=== PATIENT | female | born 1940 | race Caucasian/White ===

== ENCOUNTER → 2016-10-26 | Outpatient (CLI) | payer OTHER ==
[~2016-10-26] MED LIST: ACET-1138 PO; ASPEC325 PO; ASPEC81 PO; BSP/10 PO; CHOL100010 PO; CLTP PO; FRRG PO; LEVO75TA PO; MISCTAB88 PO; MULT-506 PO; SALI0.658 NAE; ULT50X PO; ZLF/50 PO
[2016-10-26 18:00] LABS: ALT/SGPT 18 U/L (12-78); AST/SGOT 17 U/L (15-37); BLOOD UREA NITROGEN 12 mg/dl (7-18); BUN/CREATININE RATIO 13.8 (10-20); CALCIUM 8.6 mg/dl (8.5-10.1); CARBON DIOXIDE 30 mmol/L (21-32); CHLORIDE 109 mmol/L (98-107); CREATININE 0.86 mg/dl (0.60-1.20); GLUCOSE 81 mg/dl (70-99); POTASSIUM 4.2 mmol/L (3.5-5.1); SODIUM 144 mmol/L (136-145)
[2016-10-26 18:10] LABS: ALB/GLOB RATIO 1.1 (0.9-2); ALKALINE PHOSPHATASE 75 U/L (45-117)
== END | disposition home or self-care (01) ==
LOC: C.LABBFT 10:35
PROVIDERS: ATTEND Nurse Practitioner
DX: E55.9 Vitamin D deficiency, unspecified (principal); E03.9 Hypothyroidism, unspecified; E78.5 Hyperlipidemia, unspecified

== ENCOUNTER → 2017-03-17 | Outpatient (CLI) | payer OTHER ==
--- NOTE | 2017-03-18 09:38 | MAMMOGRAPHY REPORT ---
BILATERAL DIGITAL SCREENING MAMMOGRAM WITH CAD: 03/17/2017 CLINICAL HISTORY: Routine screening. Patient has no complaints. TECHNIQUE: Current study was also evaluated with a Computer Aided Detection (CAD) system. Bilateral CC and MLO views were obtained. COMPARISON: Comparison is made to exams dated: 03/15/2016 mammogram, 02/27/2015 mammogram, 02/22/2013 mammogram, 02/25/2014 mammogram, 02/21/2012 mammogram, and 02/18/2011 mammogram - [facility]. BREAST COMPOSITION: The tissue of both breasts is almost entirely fatty. FINDINGS: No suspicious masses, calcifications, or areas of architectural distortion are noted in ei ther breast. There has been no significant interval change compared to prior exams. IMPRESSION: ACR BI-RADS CATEGORY 1: NEGATIVE There is no mammographic evidence of malignancy. A 1 year screening mammogram is recommended. The pa tient will receive written notification of the results. Approximately 10% of breast cancers are not detected with mammography. A negative mammographic report should not delay biopsy if a clinically suggestive mass is present. Juanis Graham M.D. ah/:03/17/2017 12:15:49 Fiber Artist: Leti DOMINGUEZ(R)(M), [facility] letter sent: Normal 1/2 BI-RADS Code: ACR BI-RADS Category 1: Negative
== END | disposition home or self-care (01) ==
LOC: C.MAMM 11:27
PROVIDERS: ATTEND Nurse Practitioner
DX: Z12.31 Encounter for screening mammogram for malignant neoplasm of breast (principal)

== ENCOUNTER → 2017-05-25 | Outpatient (CLI) | payer OTHER ==
[2017-05-25 17:47] LABS: ALBUMIN 3.4 gm/dl (3.4-5.0); ALT/SGPT 20 U/L (12-78); AST/SGOT 19 U/L (15-37); BLOOD UREA NITROGEN 11 mg/dl (7-18); CALCIUM 8.8 mg/dl (8.5-10.1); CARBON DIOXIDE 28 mmol/L (21-32); CHOLESTEROL 204 mg/dl (0-200); GLUCOSE 71 mg/dl (70-99); POTASSIUM 4.2 mmol/L (3.5-5.1); SODIUM 138 mmol/L (136-145)
[2017-05-25 17:49] LABS: ALKALINE PHOSPHATASE 78 U/L (45-117); LDL CHOLESTEROL CALCULATED 107 mg/dl
== END | disposition home or self-care (01) ==
LOC: C.LABBFT 11:33
PROVIDERS: ATTEND Nurse Practitioner
DX: E78.5 Hyperlipidemia, unspecified (principal); E53.8 Deficiency of other specified B group vitamins

== ENCOUNTER 2020-04-23 09:51 | Observation (INO) ==
[2020-04-23] MEDS ORDERED: ONDANSETRON INJ 2 MG/ML 2 ML VIAL IV STA (10:14)
[2020-04-23 10:23] LABS: Basophils # (auto) 0.01 K/uL (0-0.2); Basophils % (auto) 0.2 %; Eosinophils # (auto) 0.07 K/uL (0-0.5); Eosinophils % (auto) 1.3 %; Hematocrit (blood only) 44.5 % (37-47); Immature Granulocytes # (auto) 0.02 K/uL (0.00-0.02); Immature Granulocytes % (auto) 0.4 %; Lymphocytes # (auto) 2.38 K/uL (1.2-3.4); Lymphocytes % (auto) 44.4 %; Mean Corpuscular Hemoglobin 29.4 pg (25-34); Mean Corpuscular Hgb Conc 33.7 g/dL (32-36); Mean Corpuscular Volume 87.1 fL (80-100); Mean Platelet Volume 9.8 fL (7.4-10.4); Monocytes % (auto) 7.5 %; Neutrophils # (auto) 2.48 K/uL (1.4-6.5); Neutrophils % (auto) 46.2 %; Platelet Count 226 K/uL (130-400); RDW Coefficient of Variation 13.1 % (11.5-14.5); Red Blood Count 5.11 M/uL (4.2-5.4); White Blood Count 5.36 K/uL (4.8-10.8)
--- NOTE | 2020-04-23 10:28 | Emergency Department Note ---
Impression & Plan Pulmonary embolism, Vertigo ED Provider Note NAME: KEMAR CISNEROS AGE: 79 SEX: F : 1940 ARRIVES VIA: Walk-In INFORMANT: Patient, ED PROVIDER(S): Marcellus Vallejo DO CHIEF COMPLAINT: Vertigo HPI: The patient is a 79-year-old female who presented to the emergency department for an evaluation of dizziness and vertigo. The patient was seen in our facility recently for similar complaints. She has significant difficulty ambulating because of "room spinning". The patient is had intermittent episodes of dizziness. They appear to be very severe at times. When she first came to our facility she had to come by ambulance because symptoms were so severe. She states she is also noticed some constipation. She denies having any chest pain. She denies having a headache but she does complain of "neck fullness". She denies having any lower extremity swelling or cough. She is had no fever or exposure to COVID-19 as far she knows. The patient had a telehealth visit with her primary care physician but at that time the symptoms were improved somewhat. The patient is very concerned that she is having a stroke. ROS: See above HPI for pertinent positives & negatives. A total of 10 systems reviewed and were otherwise negative. PAST MEDICAL HISTORY: See Below PAST SURGICAL HISTORY: See Below FAMILY HISTORY: See Below SOCIAL HISTORY: See Below HOME MEDICATIONS: See Below ALLERGIES: See Below VITALS: See Below PHYSICAL EXAMINATION: GENERAL: The patient is awake and alert. She appears somewhat anxious appearing but overall comfortable. EYES: The conjunctivae are clear. The pupils are round and reactive. There was no nystagmus elicited. EARS, NOSE, MOUTH AND THROAT: The nose is without any evidence of any deformity. Mucous membranes are moist. Tongue is midline. NECK: The neck is nontender and supple. RESPIRATORY: Normal respiratory effort is noted there is no evidence of wheezing rhonchi or rales CARDIOVASCULAR: Regular rate and rhythm noted there no murmurs rubs or gallops normal S1 normal S2. GASTROINTESTINAL: The abdomen is soft. Abdomen is nontender. MUSCULOSKELETAL/EXTREMITIES: There is no evidence of gross deformity full range of motion is noted in the hips and shoulders. SKIN: There is no obvious evidence of any rash. There are no petechiae, pallor or cyanosis noted. NEUROLOGIC: Patient is awake alert and oriented x3 strength is symmetric patellar reflexes are 2+ bilaterally MEDICAL DECISION MAKING: The patient is a 79-year-old female who presented to the emergency department for an evaluation of dizziness. The patient describes generalized weakness and dizziness. She describes her dizziness as vertigo. She was seen in our facility recently with similar complaints. The patient initially felt she was h aving neurologic symptoms. She did not have any focal neurologic deficit but because of her concerns further laboratory and radiographic studies were obtained to ensure this was not a central nervous system cause for her vertigo. Coincidentally it was noted that she had pulmonary embolism in the right upper lobe. This was found on CT angiography of the neck. She was treated with Lovenox in the emergency department. She was also treated with Zofran. I discussed the patient's laboratory and radiographic studies with her. I also discussed her case with the on-call [facility] group. They have agreed to evaluate the patient in the emergency department for further management and disposition. The patient does not appear to have unstable vital signs. She did receive IV contrast for the [employer] imaging. I would recommend that the patient consider having angiography of the chest to evaluate the clot burden although I do not think it will be very great given the patient's vital signs. She did have Dopplers of the lower extremities which did not appear to have any signs of DVT. Triage Nursing notes reviewed. Prior medical records reviewed Vital Signs: reviewed and remarkable for elevated blood pressure. Differential diagnosis: Benign positional vertigo, dehydration, hypovolemia, anemia, tumor, infection, hypoglycemia, electrolyte abnormalities, cardiac sources, intracerebral event, toxicologic, neurologic, as well as other pathologies. ER treatment provided: See below Diagnostics interpreted by me: ECG: EKG was obtained in the emergency department. My interpretation is sinus bradycardia 51 bpm. There is no ectopy. There is no acute ST segment abnormalities noted. This was compared to a tracing from April 17, 2020. No significant changes were noted. Cardiac Monitoring: An order was placed for continuous cardiac monitoring. The monitor shows a rate of 55 bpm with sinus bradycardia rhythm. Laboratory studies: As stated above and show below. Imaging studies: See below Consultation(s): 1325: I discussed this case with Myrtle who is on-call for the [facility] group. They will evaluate the patient in the emergency department. ED COURSE: Procedures: none PDMP:reviewed and no issues Critical Care: I have personally spent greater than 45 minutes of critical care time in the direct management of this patient. This includes bedside care, interpretation of diagnostic studies, and testing, discussion with consultants, patient, and family members, and other required patient management activities. This 45 minutes is in excess of all separately billable procedures. Past Med/Surg History Medical History Anxiety Artificial menopause state Depression Fibroma of lip GERD (gastroesophageal reflux disease) Hypothyroidism Insomnia Osteoarthritis Papilloma of oral cavity Urinary leakage Surgical History History of adenoidectomy History of bilateral tubal ligation History of cataract surgery RT/LEFT History of cholecystectomy History of colonoscopy History of esophagogastroduodenoscopy (EGD) History of tonsillectomy History of tooth extraction History of total abdominal hysterectomy and bilateral salpingo-oophorectomy History of total knee replacement RT Family History Sister Family history of diabetes mellitus Hypertension Allergies Other No family history of adverse response to anesthesia No family history of bleeding disorder Social History Smoking Status: Never smoker Second Hand Exposure: Yes (IN THE PAST); Hx Alcohol Use: No Hx Substance Use: No Preferred Language: Irish Communication Ability: Effective Swat Team Member Required: No Beliefs That Will Affect Care: None Current Living Situation: Spouse current occupational status: retired Feels Safe at Home: Yes Assistive Devices: Glasses and Hearing Aid - Bilateral Allergies Allergies Allergy/AdvReac Type Severity Reaction Status Date / Time levofloxacin Allergy Intermediate QUINOLONES-JOINT Verified 04/23/20 13:16 PAIN EDEMA lumiracoxib Allergy Intermediate TRILISATE-TINNITUS,CONFUSION,RAPID Verified 04/23/20 13:16 HEART RATE zolpidem Allergy Intermediate MUSCLE PAIN Verified 04/23/20 13:16 choline salicylate Allergy Mild tinnitus/co Verified 04/23/20 13:16 nfusion/tac hycardia ciprofloxacin Allergy Mild RASH Verified 04/23/20 13:16 clindamycin Allergy Mild RASH Verified 04/23/20 13:16 homatropine Allergy Mild RASH Verified 04/23/20 13:16 magnesium salicylate Allergy Mild tinnitus/co Verified 04/23/20 13:16 nfusion/tac hycardia Penicillins Allergy Mild RASH Verified 04/23/20 13:16 phenobarbital Allergy Mild RASH Verified 04/23/20 13:16 Quinolones Allergy Mild LEVAQUIN-JOINT Verified 04/23/20 13:16 PAIN,EDEMA terfenadine Allergy Mild HEADACHES Verified 04/23/20 13:16 Trilisate Allergy Mild tinnitus/co Verified 12/26/15 10:23 nfusion/tac hycardia atropine Allergy Unknown UNKNOWN Verified 04/23/20 13:16 hyoscyamine Allergy Unknown UNKNOWN Verified 04/23/20 13:16 metronidazole Allergy Unknown UNKNOWN Verified 04/23/20 13:16 nabumetone Allergy Unknown UNKNOWN Verified 04/23/20 13:16 pantoprazole Allergy Unknown UNKNOWN Verified 04/23/20 13:16 scopolamine Allergy Unknown UNKNOWN Verified 04/23/20 13:16 tetracycline Allergy Unknown UNKNOWN Verified 04/23/20 13:16 astemizole AdvReac Intermediate HISMANAL-HE Verified 04/23/20 13:16 ADACHES capsaicin AdvReac Mild HEADACHE Verified 04/23/20 13:16 Cephalosporins AdvReac Mild CEFTIN-GI Verified 04/23/20 13:16 upset diclofenac AdvReac Mild HEADACHE Verified 04/23/20 13:16 Diclopak AdvReac Mild HEADACHE Verified 12/26/15 14:50 etodolac AdvReac Mild LODINE-HEAD Verified 04/23/20 13:16 ACHE fentanyl AdvReac Mild DIZZINESS Verified 04/23/20 13:16 oxaprozin AdvReac Mild DAYPRO-NAUSEA Verified 04/23/20 13:16 AND VOMITING oxycodone AdvReac Mild HALLUCINATI Verified 04/23/20 13:16 ONS,DISORIE NTATION pseudoephedrine AdvReac Mild GUAIMAX Verified 04/23/20 13:16 D-GI UPSET INSOMNIA DISORIENTATION RAPID HEART RATE Dehydrocholic Acid Allergy Mild UNKNOWN Uncoded 04/23/20 13:16 Home Meds Home Medications Medication Instructions Recorded Confirmed Move Free Joint Health 1 tab PO HS 05/02/18 04/23/20 melatonin 10 mg PO HS PRN 05/02/18 04/23/20 cholecalciferol (vitamin D3) 2,000 unit PO HS 07/13/18 04/23/20 [Vitamin D3] aspirin 81 mg PO QAM 08/02/18 04/23/20 cjfuplgrjmyy-efmu-fboam acid 1 tab PO HS 01/18/19 04/23/20 [Centrum] cyanocobalamin (vitamin B-12) 5,000 mcg PO WEEKLY cap 04/12/19 04/23/20 5,000 mcg capsule calcium carbonate-mag hydroxid 2 tab PO DIRECTED PRN 04/17/20 04/23/20 [Rolaids] Previous Rx's Medication Instructions Recorded loratadine 10 mg tablet 10 mg PO DAILY #30 tab 02/27/19 buspirone 10 mg tablet 10 mg PO TID #270 tab 01/25/20 levothyroxine 75 mcg tablet 75 mcg PO DAILY #90 tab 02/18/20 sertraline 50 mg tablet 50 mg PO DAILY #90 tab 02/18/20 meclizine 25 mg tablet 25 mg PO TID PRN #30 tab 04/18/20 ondansetron HCl 4 mg tablet 4 mg PO Q8H PRN #30 tab 04/18/20 Results & Data (ED) Vital Signs Vital Signs - 24 hr 04/23/20 09:56 04/23/20 10:08 04/23/20 10:14 Temperature 36.6 C Temperature Source Temporal Artery Scan Pulse Rate 59 L 53 L 53 L Pulse Rate [Apical] Pulse Rate from SpO2 Sensor 53 L 52 L Respiratory Rate 16 17 17 Respiratory Effort / Characteristics Non-Labored Spontaneous Respiratory Depth Normal Respiratory Pattern Regular Blood Pressure 134/69 147/84 H Blood Pressure [Left Arm] Blood Pressure Mean 90 97 Blood Pressure Mean [Left Arm] Blood Pressure Position Sitting Pulse Oximetry 96 98 98 Oxygen Delivery Method Room Air Sepsis Recent Fever Within 48 Hours No Sepsis New/Unexplained Change in Mental Status N/A Sepsis Action Taken by Nursing No Action Required 04/23/20 10:20 04/23/20 10:24 04/23/20 10:30 Temperature Temperature Source Pulse Rate 49 L 48 L Pulse Rate [Apical] 50 L Pulse Rate from SpO2 Sensor 49 L 47 L Respiratory Rate 23 20 18 Respiratory Effort / Characteristics Respiratory Depth Respiratory Pattern Blood Pressure 144/66 H Blood Pressure [Left Arm] 147/84 H Blood Pressure Mean 99 Blood Pressure Mean [Left Arm] 105 Blood Pressure Position Pulse Oximetry 98 98 97 Oxygen Delivery Method Room Air Sepsis Recent Fever Within 48 Hours Sepsis New/Unexplained Change in Mental Status Sepsis Action Taken by Nursing 04/23/20 10:40 04/23/20 10:50 04/23/20 11:00 Temperature Temperature Source Pulse Rate 51 L 53 L 47 L Pulse Rate [Apical] Pulse Rate from SpO2 Sensor 50 L 52 L 47 L Respiratory Rate 13 14 17 Respiratory Effort / Characteristics Respiratory Depth Respiratory Pattern Blood Pressure 150/71 H Blood Pressure [Left Arm] Blood Pressure Mean 90 Blood Pressure Mean [Left Arm] Blood Pressure Position Pulse Oximetry 94 97 Oxygen Delivery Method Sepsis Recent Fever Within 48 Hours Sepsis New/Unexplained Change in Mental Status Sepsis Action Taken by Nursing 04/23/20 11:21 04/23/20 11:30 04/23/20 11:31 Temperature Temperature Source Pulse Rate 63 59 L 59 L Pulse Rate [Apical] Pulse Rate from SpO2 Sensor 59 L 59 L Respiratory Rate 21 17 18 Respiratory Effort / Characteristics Respiratory Depth Respiratory Pattern Blood Pressure 174/71 H Blood Pressure [Left Arm] Blood Pressure Mean 91 Blood Pressure Mean [Left Arm] Blood Pressure Position Pulse Oximetry 97 94 Oxygen Delivery Method Sepsis Recent Fever Within 48 Hours Sepsis New/Unexplained Change in Mental Status Sepsis Action Taken by Nursing 04/23/20 11:40 04/23/20 11:50 04/23/20 12:00 Temperature Temperature Source Pulse Rate 58 L 58 L 52 L Pulse Rate [Apical] Pulse Rate from SpO2 Sensor 58 L Respiratory Rate 16 13 16 Respiratory Effort / Characteristics Respiratory Depth Respiratory Pattern Blood Pressure 150/69 H Blood Pressure [Left Arm] Blood Pressure Mean 102 Blood Pressure Mean [Left Arm] Blood Pressure Position Pulse Oximetry 97 Oxygen Delivery Method Sepsis Recent Fever Within 48 Hours Sepsis New/Unexplained Change in Mental Status Sepsis Action Taken by Nursing 04/23/20 12:10 04/23/20 12:20 04/23/20 12:30 Temperature Temperature Source Pulse Rate 55 L 58 L 54 L Pulse Rate [Apical] Pulse Rate from SpO2 Sensor 56 L 58 L 54 L Respiratory Rate 13 16 14 Respiratory Effort / Characteristics Respiratory Depth Respiratory Pattern Blood Pressure 167/68 H Blood Pressure [Left Arm] Blood Pressure Mean 89 Blood Pressure Mean [Left Arm] Blood Pressure Position Pulse Oximetry 96 97 100 Oxygen Delivery Method Sepsis Recent Fever Within 48 Hours Sepsis New/Unexplained Change in Mental Status Sepsis Action Taken by Nursing 04/23/20 13:10 04/23/20 13:11 Temperature Temperature Source Pulse Rate 58 L 51 L Pulse Rate [Apical] Pulse Rate from SpO2 Sensor 50 L Respiratory Rate 21 16 Respiratory Effort / Characteristics Respiratory Depth Respiratory Pattern Blood Pressure 170/72 H Blood Pressure [Left Arm] Blood Pressure Mean 103 Blood Pressure Mean [Left Arm] Blood Pressure Position Pulse Oximetry 98 Oxygen Delivery Method Sepsis Recent Fever Within 48 Hours Sepsis New/Unexplained Change in Mental Status Sepsis Action Taken by Prison Medications Current Medication List: was personally reviewed by me Laboratory Data Attestation: I reviewed the patient's lab results. Result diagrams: 04/23/20 10:19 04/23/20 10:19 Lab Results 04/23/20 04/23/20 04/23/20 Range/Units 10: 10: 10:19 WBC 5.36 (4.8-10.8) K/uL RBC 5.11 (4.2-5.4) M/uL Hgb 15.0 (12.0-16.0) g/dL Hct 44.5 (37-47) % MCV 87.1 (80-100) fL MCH 29.4 (25-34) pg MCHC 33.7 (32-36) g/dL RDW Std Deviation 42.0 (36.4-46.3) fL RDW Coeff of Adelaida 13.1 (11.5-14.5) % Plt Count 226 (130-400) K/uL MPV 9.8 (7.4-10.4) fL Immature Gran % (Auto) 0.4 % Neut % (Auto) 46.2 % Lymph % (Auto) 44.4 % Vance % (Auto) 7.5 % Eos % (Auto) 1.3 % Baso % (Auto) 0.2 % Neut # (Auto) 2.48 (1.4-6.5) K/uL Lymph # (Auto) 2.38 (1.2-3.4) K/uL Vance # (Auto) 0.40 (0.11-0.59) K/uL Eos # (Auto) 0.07 (0-0.5) K/uL Baso # (Auto) 0.01 (0-0.2) K/uL Immature Gran # (Auto) 0.02 (0.00-0.02) K/uL PT 10.9 (9.0-12.0) Seconds INR 1.0 (0.9-1.1) APTT 25.2 (21.0-31.0) Seconds PTT Ratio 0.9 Sodium 139 (136-145) mmol/L Potassium 4.0 (3.5-5.1) mmol/L Chloride 103 (98-107) mmol/L Carbon Dioxide 28 (21-32) mmol/L Anion Gap 8.0 (3-11) BUN 16 (7-18) mg/dl Creatinine 1.13 (0.6-1.2) mg/dl Est Cr Clr Drug Dosing 40.7 ml/min Est GFR ( Amer) 54.3 Est GFR (Non-Af Amer) 46.8 BUN/Creatinine Ratio 13.9 (10-20) Glucose 102 H (70-99) mg/dl Calcium 9.5 (8.5-10.1) mg/dl Magnesium 2.4 (1.8-2.4) mg/dl Total Bilirubin 0.7 (0.2-1) mg/dl AST 20 (15-37) U/L ALT 19 (12-78) U/L Alkaline Phosphatase 72 (45-117) U/L Troponin I < 0.015 (0-0.045) ng/ml Total Protein 7.0 (6.4-8.2) gm/dl Albumin 3.4 (3.4-5.0) gm/dl Globulin 3.6 (2.5-4.0) gm/dl Albumin/Globulin Ratio 0.9 (0.9-2) Urine Color Urine Appearance (Clear) Urine pH (4.5-7.5) Ur Specific [place] (1.000-1.030) Urine Protein (Negative) Urine Glucose (UA) (Negative) Urine Ketones (Negative) Urine Blood (Negative) Urine Nitrite (Negative) Urine Bilirubin (Negative) Urine Urobilinogen (Negative) Ur Leukocyte Esterase (Negative) Urine WBC (Auto) (0-5) /hpf Urine RBC (Auto) (0-4) /hpf U Hyaline Cast (Auto) (0-5) /lpf U Epithel Cells (Auto) (0-5) /lpf Urine Bacteria (Auto) (Negative) SARS-CoV-2 Ag (Rapid) (Negative) 04/23/20 04/23/20 Range/Units 11:45 12:28 WBC (4.8-10.8) K/uL RBC (4.2-5.4) M/uL Hgb (12.0-16.0) g/dL Hct (37-47) % MCV (80-100) fL MCH (25-34) pg MCHC (32-36) g/dL RDW Std Deviation (36.4-46.3) fL RDW Coeff of Adelaida (11.5-14.5) % Plt Count (130-400) K/uL MPV (7.4-10.4) fL Immature Gran % (Auto) % Neut % (Auto) % Lymph % (Auto) % Vance % (Auto) % Eos % (Auto) % Baso % (Auto) % Neut # (Auto) (1.4-6.5) K/uL Lymph # (Auto) (1.2-3.4) K/uL Vance # (Auto) (0.11-0.59) K/uL Eos # (Auto) (0-0.5) K/uL Baso # (Auto) (0-0.2) K/uL Immature Gran # (Auto) (0.00-0.02) K/uL PT (9.0-12.0) Seconds INR (0.9-1.1) APTT (21.0-31.0) Seconds PTT Ratio Sodium (136-145) mmol/L Potassium (3.5-5.1) mmol/L Chloride (98-107) mmol/L Carbon Dioxide (21-32) mmol/L Anion Gap (3-11) BUN (7-18) mg/dl Creatinine (0.6-1.2) mg/dl Est Cr Clr Drug Dosing ml/min Est GFR ( Amer) Est GFR (Non-Af Amer) BUN/Creatinine Ratio (10-20) Glucose (70-99) mg/dl Calcium (8.5-10.1) mg/dl Magnesium (1.8-2.4) mg/dl Total Bilirubin (0.2-1) mg/dl AST (15-37) U/L ALT (12-78) U/L Alkaline Phosphatase (45-117) U/L Troponin I (0-0.045) ng/ml Total Protein (6.4-8.2) gm/dl Albumin (3.4-5.0) gm/dl Globulin (2.5-4.0) gm/dl Albumin/Globulin Ratio (0.9-2) Urine Color Yellow Urine Appearance Clear (Clear) Urine pH 8.5 H (4.5-7.5) Ur Specific [place] 1.019 (1.000-1.030) Urine Protein Negative (Negative) Urine Glucose (UA) Negative (Negative) Urine Ketones Negative (Negative) Urine Blood Negative (Negative) Urine Nitrite Negative (Negative) Urine Bilirubin Negative (Negative) Urine Urobilinogen Negative (Negative) Ur Leukocyte Esterase 1+ H (Negative) Urine WBC (Auto) 1-5 (0-5) /hpf Urine RBC (Auto) 0-4 (0-4) /hpf U Hyaline Cast (Auto) 0 (0-5) /lpf U Epithel Cells (Auto) 10-20 H (0-5) /lpf Urine Bacteria (Auto) Negative (Negative) SARS-CoV-2 Ag (Rapid) Negative (Negative) Administered Medications Discontinued Medications Enoxaparin Sodium (Enoxaparin 80 Mg/0.8 Ml Syr) 80 mg SQ NOW ONE Stop: 04/23/20 12:01 Last Admin: 04/23/20 13:06 Dose: 80 mg Documented by: [id number] Ioversol (Optiray 320 125ml) 119 ml IV ONCE ONE Stop: 04/23/20 11:21 Last Admin: 04/23/20 11:20 Dose: 119 ml Documented by: [id number] Ondansetron HCl (Ondansetron Inj 2 Mg/Ml 2 Ml Vial) 4 mg IV NOW STA Stop: 04/23/20 10:15 Last Admin: 04/23/20 10:27 Dose: 4 mg Documented by: [id number] Imaging Data Radiologist's Impression: Patient: KEMAR CISNEROS Admit Date: 04/23/20 MR#: [id number] Address1: [address] [place] [address] Acct ID:[id number] Address2: Date: 1940 [facility] Zip: [place] [address] Age: 79 Location: ED Sex: F Room/Bed: Att Phy: Diagnosis: VERTIGO Jennifer Phy: Ena Vogt CRNP Service Date: 04/23/20 Fam Phy: Interpreting Phy: Abhinav Morfin MD Admit Phy: Ordering Phy: Marcellus Vallejo DO cc: ~ BILATERAL LOWER EXTREMITY VENOUS DOPPLER HISTORY: Pulmonary embolus. Assess for DVT. COMPARISON STUDY: None. FINDINGS: There is normal compressibility, flow, and augmentation within the bilateral lower extremity deep venous systems. IMPRESSION: No DVT within the right or left lower extremity. ACT 112: Negative or not required by law. Electronically signed by: Abhinav Morfin M.D. 04/23/2020 12:57 PM Dictated: 04/23/20 1257 Transcribed: 04/23/20 1257 Patient: KEMAR CISNEROS Admit Date: 04/23/20 MR#: [id number] Address1: [address] [place] [address] Acct ID:[id number] Address2: Date: 1940 [facility] Zip: [place] [address] Age: 79 Location: ED Sex: F Room/Bed: Att Phy: Diagnosis: VERTIGO Jennifer Phy: Ena Vogt CRNP Service Date: 04/23/20 [facility] Phy: Interpreting Phy: Andrae Schofield MD Admit Phy: Ordering Phy: Marcellus Vallejo DO cc: ~ UNENHANCED CT OF THE BRAIN; CT ANGIOGRAM OF THE BRAIN; CT ANGIOGRAM OF THE NECK CLINICAL HISTORY: Strokelike symptoms. Vertigo. COMPARISON STUDY: CT of the brain dated 05/02/2018 and 01/01/2014. TECHNIQUE: Unenhanced axial CT scan of the brain is performed. Subsequently, following the IV administration of 119 of Optiray 320, CT angiogram of the head and neck was performed from the aortic arch to the vertex. Images are reviewed in the axial, sagittal, and coronal planes. 3-D MIPS images are created and assessed. IV contrast was administered without complication. All measurements were calculated based on NASCET criteria. A dose lowering technique was uti lized adhering to the principles of ALARA. CT DOSE: 1096.70 mGy.cm FINDINGS: Brain parenchyma: There is minimal microangiopathic change. There is no hemorrhage, mass effect, or evidence of acute territorial ischemia by CT criteria. There is no evidence of enhancing mass lesion on the angiogram phase images. The ventricles, sulci, and cisterns are normal in configuration. Garcia- white matter differentiation is preserved. No extra-axial fluid collection is seen. Mineralization is again seen in the left basal ganglia. Thoracic aorta: There is mild atherosclerotic calcification of the thoracic a елена. Visualized portions of the thoracic aorta are normal in caliber. The aortic arch demonstrates bovine variant anatomy. Right carotid arterial system: The right common carotid artery is widely patent, as are the right internal and external carotid arteries. Left carotid arterial system: The left common carotid artery is widely patent, as are the left internal and external carotid arteries. Vertebral arteries: The vertebral arteries are patent bilaterally noting left- sided dominance. Subclavian arteries: Widely patent bilaterally. Intracranial vasculature: The [place] of [place] is developmentally complete. The internal carotid arteries are patent at the skull base, as are the anterior and middle cerebral arteries bilaterally. The vertebrobasilar system and posterior cerebral arteries are widely patent. The left vertebral artery is dominant. There is no aneurysm, high-grade stenosis, or focal vessel cut off seen throughout the intracranial circulation. There is a large draining vessel in the region of the left basal ganglia calcifications seen on image #83, likely resenting an AVM. Jugular veins: Patent bilaterally. Dural sinuses: Patent. Upper chest: Partially visualized upper lobe lung parenchyma appears clear. There are pulmonary emboli within branches of the right upper lobe pulmonary artery seen on image #12. Soft tissues: The visualized pharyngeal soft tissues are normal in appearance noting angiographic phase technique. The oropharyngeal airway appears widely patent. The thyroid gland is atrophic. The salivary glands are normal in appearance. No cervical lymphadenopathy is seen. Skeletal structures: The skeletal structures are osteopenic. The calvarium a ppears intact. The cervical spine is maintained noting mild multilevel spondylosis. No lytic or blastic lesion is seen. Orbits: The bony orbits are intact. Orbital contents are normal as visualized n oting bilateral ocular lens implants. Sinuses and mastoids: The paranasal sinuses are clear. There is a right mastoid effusion. The left mastoid air cells are well pneumatized. IMPRESSION: 1. Pulmonary emboli are seen within branches of the right upper lobe pulmonary artery. 2. There is no hemorrhage, mass effect, or evidence of acute territorial ischemia by CT criteria. 3. Unremarkable CT angiogram of the neck. 4. Asymmetric calcifications are again seen in the left basal ganglia. There are abnormal vessels in this region, likely representing an AVM. A developmental venous anomaly could have this appearance but is considered less likely. This finding is of doubtful acute significance and has been present on studies dating back to at least 2013. 5. Otherwise unremarkable CT angiogram of the brain. ACT 112: Negative or not required by law. Electronically signed by: Andrae Schofield M.D. 04/23/2020 11:46 AM Dictated: 04/23/204 Transcribed: 04/23/201123 Patient: KEMAR CISNEROS Admit Date: 04/23/20 MR#: [id number] Address1: [address] [place] [address] Acct ID:[id number] Address2: Date: 1940 [facility] Zip: [place] [address] Age: 79 Location: ED Sex: F Room/Bed: Att Phy: Diagnosis: VERTIGO Jennifer Phy: Ena Vogt CRNP Service Date: 04/23/20 Fam Phy: Interpreting Phy: Lukas Solis MD Admit Phy: Ordering Phy: Marcellus Vallejo DO cc: ~ KUB CLINICAL HISTORY: Vomiting. COMPARISON STUDY: Abdominal series April 17, 2020. FINDINGS: Incidental note is made of cholecystectomy clips. The bowel gas pattern is normal. A mild to moderate amount stool within colon and rectum is noted. This is within normal limits. IMPRESSION: No evidence for a bowel obstruction. ACT 112: Negative or not required by law. Electronically signed by: Lukas Solis M.D. 04/23/2020 11:00 AM Dictated: 04/23/20 1059 Transcribed: 04/23/20 105 Patient: KEMAR CISNEROS Admit Date: 04/23/20 MR#: [id number] Address1: [address] [place] [address] Acct ID:[id number] Address2: Date: 1940 [facility] Zip: [place] [address] Age: 79 Location: ED Sex: F Room/Bed: Att Phy: Diagnosis: VERTIGO Jennifer Phy: Ena Vogt CRNP Service Date: 04/23/20 Fam Phy: Interpreting Phy: Andrae Schofield MD Admit Phy: Ordering Phy: Marcellus Vallejo DO cc: ~ UNENHANCED CT OF THE BRAIN; CT ANGIOGRAM OF THE BRAIN; CT ANGIOGRAM OF THE NECK CLINICAL HISTORY: Strokelike symptoms. Vertigo. COMPARISON STUDY: CT of the brain dated 05/02/2018 and 01/01/2014. TECHNIQUE: Unenhanced axial CT scan of the brain is performed. Subsequently, following the IV administration of 119 of Optiray 320, CT angiogram of the head and neck was performed from the aortic arch to the vertex. Images are reviewed in the axial, sagittal, and coronal planes. 3-D MIPS images are created and assessed. IV contrast was administered without complication. All measurements were calculated based on NASCET criteria. A dose lowering technique was utilized adhering to the principles of ALARA. CT DOSE: 1096.70 mGy.cm FINDINGS: Brain parenchyma: There is minimal microangiopathic change. There is no hemorrhage, mass effect, or evidence of acute territorial ischemia by CT criteria. There is no evidence of enhancing mass lesion on the angiogram phase images. The ventricles, sulci, and cisterns are normal in configuration. Garcia- white matter differentiation is preserved. No extra-axial fluid collection is seen. Mineralization is again seen in the left basal ganglia. Thoracic aorta: There is mild atherosclerotic calcification of the thoracic aorta. Visualized portions of the thoracic aorta are normal in caliber. The aortic arch demonstrates bovine variant anatomy. Right carotid arterial system: The right common carotid artery is widely patent, as are the right internal and external carotid arteries. Left carotid arterial system: The left common carotid artery is widely patent, as are the left internal and external carotid arteries. Vertebral arteries: The vertebral arteries are patent bilaterally noting left- sided dominance. Subclavian arteries: Widely patent bilaterally. Intracranial vasculature: The [place] of [place] is developmentally complete. The internal carotid arteries are patent at the skull base, as are the anterior and middle cerebral arteries bilaterally. The vertebrobasilar system and posterior cerebral arteries are widely patent. The left vertebral artery is dominant. There is no aneurysm, high-grade stenosis, or focal vessel cut off seen throughout the intracranial circulation. There is a large draining vessel in the region of the left basal ganglia calcifications seen on image #83, likely resenting an AVM. Jugular veins: Patent bilaterally. Dural sinuses: Patent. Upper chest: Partially visualized upper lobe lung parenchyma appears clear. There are pulmonary emboli within branches of the right upper lobe pulmonary artery seen on image #12. Soft tissues: The visualized pharyngeal soft tissues are normal in appearance noting angiographic phase technique. The oropharyngeal airway appears widely patent. The thyroid gland is atrophic. The salivary glands are normal in appearance. No cervical lymphadenopathy is seen. Skeletal structures: The skeletal structures are osteopenic. The calvarium appears intact. The cervical spine is maintained noting mild multilevel spondylosis. No lytic or blastic lesion is seen. Orbits: The bony orbits are intact. Orbital contents are normal as visualized noting bilateral ocular lens implants. Sinuses and mastoids: The paranasal sinuses are clear. There is a right mastoid effusion. The left mastoid air cells are well pneumatized. IMPRESSION: 1. Pulmonary emboli are seen within branches of the right upper lobe pulmonary artery. 2. There is no hemorrhage, mass effect, or evidence of acute territorial ischemia by CT criteria. 3. Unremarkable CT angiogram of the neck. 4. Asymmetric calcifications are again seen in the left basal ganglia. There are abnormal vessels in this region, likely representing an AVM. A developmental venous anomaly could have this appearance but is considered less likely. This finding is of doubtful acute significance and has been present on studies dating back to at least 2013. 5. Otherwise unremarkable CT angiogram of the brain. ACT 112: Negative or not required by law. Electronically signed by: Andrae Schofield M.D. 04/23/2020 11:46 AM Dictated: 04/23/201123 Transcribed: 04/23/201123 Patient: KEMAR CISNEROS Admit Date: 04/23/20 MR#: [id number] Address1: [address] [place] [address] Acct ID:[id number] Address2: Date: 1940 [facility] Zip: [place] [address] Age: 79 Location: ED Sex: F Room/Bed: Att Phy: Diagnosis: VERTIGO Jennifer Phy: Ena oVgt CRNP Service Date: 04/23/20 [facility] Phy: Interpreting Phy: Andrae Schofield MD Admit Phy: Ordering Phy: Marcellus Vallejo DO cc: ~ UNENHANCED CT OF THE BRAIN; CT ANGIOGRAM OF THE BRAIN; CT ANGIOGRAM OF THE NECK CLINICAL HISTORY: Strokelike symptoms. Vertigo. COMPARISON STUDY: CT of the brain dated 05/02/2018 and 01/01/2014. TECHNIQUE: Unenhanced axial CT scan of the brain is performed. Subsequently, following the IV administration of 119 of Optiray 320, CT angiogram of the head and neck was performed from the aortic arch to the vertex. Images are reviewed in the axial, sagittal, and coronal planes. 3-D MIPS images are created and assessed. IV contrast was administered without complication. All measurements were calculated based on NASCET criteria. A dose lowering technique was utilized adhering to the principles of ALARA. CT DOSE: 1096.70 mGy.cm FINDINGS: Brain parenchyma: There is minimal microangiopathic change. There is no hemorrhage, mass effect, or evidence of acute territorial ischemia by CT criteria. There is no evidence of enhancing mass lesion on the angiogram phase images. The ventricles, sulci, and cisterns are normal in configuration. Garcia- white matter differentiation is preserved. No extra-axial fluid collection is seen. Mineralization is again seen in the left basal ganglia. Thoracic aorta: There is mild atherosclerotic calcification of the thoracic aorta. Visualized portions of the thoracic aorta are normal in caliber. The aortic arch demonstrates bovine variant anatomy. Right carotid arterial system: The right common carotid artery is widely patent, as are the right internal and external carotid arteries. Left carotid arterial system: The left common carotid artery is widely patent, a s are the left internal and external carotid arteries. Vertebral arteries: The vertebral arteries are patent bilaterally noting left- sided dominance. Subclavian arteries: Widely patent bilaterally. Intracranial vasculature: The [place] of [place] is developmentally complete. The internal carotid arteries are patent at the skull base, as are the anterior and middle cerebral arteries bilaterally. The vertebrobasilar system and posterior cerebral arteries are widely patent. The left vertebral artery is dominant. There is no aneurysm, high-grade stenosis, or focal vessel cut off seen throughout the intracranial circulation. There is a large draining vessel in the region of the left basal ganglia calcifications seen on image #83, likely resenting an AVM. Jugular veins: Patent bilaterally. Dural sinuses: Patent. Upper chest: Partially visualized upper lobe lung parenchyma appears clear. Th ere are pulmonary emboli within branches of the right upper lobe pulmonary artery seen on image #12. Soft tissues: The visualized pharyngeal soft tissues are normal in appearance noting angiographic phase technique. The oropharyngeal airway appears widely patent. The thyroid gland is atrophic. The salivary glands are normal in appearance. No cervical lymphadenopathy is seen. Skeletal structures: The skeletal structures are osteopenic. The calvarium appears intact. The cervical spine is maintained noting mild multilevel spondylosis. No lytic or blastic lesion is seen. Orbits: The bony orbits are intact. Orbital contents are normal as visualized noting bilateral ocular lens implants. Sinuses and mastoids: The paranasal sinuses are clear. There is a right mastoid effusion. The left mastoid air cells are well pneumatized. IMPRESSION: 1. Pulmonary emboli are seen within branches of the right upper lobe pulmonary artery. 2. There is no hemorrhage, mass effect, or evidence of acute territorial ischemia by CT criteria. 3. Unremarkable CT angiogram of the neck. 4. Asymmetric calcifications are again seen in the left basal ganglia. There are abnormal vessels in this region, likely representing an AVM. A developmental venous anomaly could have this appearance but is considered less likely. This finding is of doubtful acute significance and has been present on studies dating back to at least 2013. 5. Otherwise unremarkable CT angiogram of the brain. ACT 112: Negative or not required by law. Electronically signed by: Andrae Schofield M.D. 04/23/2020 11:46 AM Dictated: 04/23/201123 Transcribed: 04/23/201123 Patient: KEMAR CISNEROS Admit Date: 04/23/20 MR#: [id number] Address1: [address] [place] [address] Acct ID:[id number] Address2: Date: 1940 [facility] Zip: [place] [address] Age: 79 Location: ED Sex: F Room/Bed: Att Phy: Diagnosis: VERTIGO Jennifer Phy: Ena Vogt CRNP Service Date: 04/23/20 [facility] Phy: Interpreting Phy: Lukas Solis MD Admit Phy: Ordering Phy: Marcellus Vallejo DO cc: ~ XR chest 1V portable CLINICAL HISTORY: Stroke Like Symptoms COMPARISON STUDY: Chest radiograph April 17, 2020. FINDINGS: Lung volumes are normal. Lungs are clear. There is no pneumothorax or pleural effusion. Cardiac size is stable. Mediastinal contours are normal. There is no evidence for pulmonary edema. IMPRESSION: No acute cardiopulmonary findings. ACT 112: Negative or not required by law. Electronically signed by: Lukas Solis M.D. 04/23/2020 11:01 AM Dictated: 04/23/20 1100 Transcribed: 04/23/20 1100 Blood Pressure Blood Pressure Findings: Elevated blood pressure Blood Pressure Disposition: further management by hospitalist Discharge Plan Visit Data Chief Complaint: Vertigo Stated Complaint: VERTIGO ED Provider: Marcellus Vallejo Discharge Problem: Pulmonary embolism, Vertigo Patient Disposition: Being Evaluated by Hospitalist Condition: Good Forms Stand Alone Forms: [email or web address] Prescriptions Prescriptions: No Action cyanocobalamin (vitamin B-12) 5,000 mcg capsule 5,000 mcg PO WEEKLY RF: 0 buspirone 10 mg tablet 10 mg PO TID Qty: 270 RF: 1 levothyroxine 75 mcg tablet 75 mcg PO DAILY Qty: 90 RF: 3 sertraline [Zoloft] 50 mg tablet 50 mg PO DAILY Qty: 90 RF: 3 loratadine [Claritin] 10 mg tablet 10 mg PO DAILY Qty: 30 RF: 6 meclizine 25 mg tablet 25 mg PO TID PRN (Reason: dizziness) Qty: 30 RF: 0 ondansetron HCl 4 mg tablet 4 mg PO Q8H PRN (Reason: nausea and vomiting) Qty: 30 RF: 0 melatonin 10 mg Tablet 10 mg PO HS PRN (Reason: Insomnia) RF: 0 [facility] 750 mg-100 mg- 1.65 mg-108 mg Tablet 1 tab PO HS RF: 0 cholecalciferol (vitamin D3) [Vitamin D3] 2,000 unit Capsule 2,000 unit PO HS RF: 0 aspirin 81 mg Tablet,Delayed Release (Dr/Ec) 81 mg PO QAM RF: 0 Centrum 18-400 mg-mcg Tablet 1 tab PO HS RF: 0 Rolaids 550-110 mg Tablet,Chewable 2 tab PO DIRECTED PRN (Reason: UPSET STOMACH) RF: 0 Referrals Referrals: Ena Vogt CRNP [Primary Care Provider] - Discharge Problem: Pulmonary embolism Qualifiers: Pulmonary embolism type: unspecified Chronicity: acute Acute cor pulmonale presence: unspecified Qualified Code(s): I26.99 - Other pulmonary embolism without acute cor pulmonale
[2020-04-23 10:36] LABS: Partial Thromboplastin Ratio 0.9; Partial Thromboplastin Time 25.2 Seconds (21.0-31.0); Prothrombin Time 10.9 Seconds (9.0-12.0)
--- NOTE | 2020-04-23 11:01 | XRay Report ---
KUB CLINICAL HISTORY: Vomiting. COMPARISON STUDY: Abdominal series April 17, 2020. FINDINGS: Incidental note is made of cholecystectomy clips. The bowel gas pattern is normal. A mild t o moderate amount stool within colon and rectum is noted. This is within normal limits. IMPRESSION: No evidence for a bowel obstruction. ACT 112: Negative or not required by law. Electronically signed by: Lukas Solis M.D. 04/23/2020 11:00 AM
[2020-04-23 11:02] LABS: Alanine Aminotransferase 19 U/L (12-78); Albumin Globulin Ratio 0.9 (0.9-2); Albumin Level 3.4 gm/dl (3.4-5.0); Alkaline Phosphatase 72 U/L (45-117); Aspartate Aminotransferase 20 U/L (15-37); BUN Creatinine Ratio 13.9 (10-20); Bilirubin,Total 0.7 mg/dl (0.2-1); Blood Urea Nitrogen 16 mg/dl (7-18); Calcium 9.5 mg/dl (8.5-10.1); Carbon Dioxide 28 mmol/L (21-32); Chloride 103 mmol/L (98-107); Creatinine Clr Calc Pharmacy 40.7 ml/min; Est GFR (African American) 54.3; Est GFR (Non-African American) 46.8; Globulin 3.6 gm/dl (2.5-4.0); Glucose 102 mg/dl (70-99); Magnesium 2.4 mg/dl (1.8-2.4); Sodium 139 mmol/L (136-145); Troponin I < 0.015 ng/ml (0-0.045)
--- NOTE | 2020-04-23 11:02 | XRay Report ---
XR chest 1V portable CLINICAL HISTORY: Stroke Like Symptoms COMPARISON STUDY: Chest radiograph April 17, 2020. FINDINGS: Lung volumes are normal. Lungs are clear. There is no pneumothorax or pleural effusion. Car diac size is stable. Mediastinal contours are normal. There is no evidence for pulmonary edema. IMPRESSION: No acute cardiopulmonary findings. ACT 112: Negative or not required by law. Electronically signed by: Lukas Solis M.D. 04/23/2020 11:01 AM
[2020-04-23] MEDS ORDERED: OPTIRAY 320 125ml IV ONE (11:20)
--- NOTE | 2020-04-23 11:47 | CT Scan Report ---
UNENHANCED CT OF THE BRAIN; CT ANGIOGRAM OF THE BRAIN; CT ANGIOGRAM OF THE NECK CLINICAL HISTORY: Strokelike symptoms. Vertigo. COMPARISON STUDY: CT of the brain dated 05/02/2018 and 01/01/2014. TECHNIQUE: Unenhanced axial CT scan of the brain is performed. Subsequently, following the IV adminis tration of 119 of Optiray 320, CT angiogram of the head and neck was performed from the aortic arch t o the vertex. Images are reviewed in the axial, sagittal, and coronal planes. 3-D MIPS images are cre ated and assessed. IV contrast was administered without complication. All measurements were calculate d based on NASCET criteria. A dose lowering technique was utilized adhering to the principles of ALA RA. CT DOSE: 1096.70 mGy.cm FINDINGS: Brain parenchyma: There is minimal microangiopathic change. There is no hemorrhage, mass effect, or e vidence of acute territorial ischemia by CT criteria. There is no evidence of enhancing mass lesion o n the angiogram phase images. The ventricles, sulci, and cisterns are normal in configuration. Garcia-w uzma matter differentiation is preserved. No extra-axial fluid collection is seen. Mineralization is again seen in the left basal ganglia. Thoracic aorta: There is mild atherosclerotic calcification of the thoracic aorta. Visualized portion s of the thoracic aorta are normal in caliber. The aortic arch demonstrates bovine variant anatomy. Right carotid arterial system: The right common carotid artery is widely patent, as are the right int ernal and external carotid arteries. Left carotid arterial system: The left common carotid artery is widely patent, as are the left internal control specialist al and external carotid arteries. Vertebral arteries: The vertebral arteries are patent bilaterally noting left-sided dominance. Subclavian arteries: Widely patent bilaterally. Intracranial vasculature: The [place] of [place] is developmentally complete. The internal carotid frankie bebeto are patent at the skull base, as are the anterior and middle cerebral arteries bilaterally. The vertebrobasilar system and posterior cerebral arteries are widely patent. The left vertebral artery i s dominant. There is no aneurysm, high-grade stenosis, or focal vessel cut off seen throughout the in tracranial circulation. There is a large draining vessel in the region of the left basal ganglia calc ifications seen on image #83, likely resenting an AVM. Jugular veins: Patent bilaterally. Dural sinuses: Patent. Upper chest: Partially visualized upper lobe lung parenchyma appears clear. There are pulmonary embol i within branches of the right upper lobe pulmonary artery seen on image #12. Soft tissues: The visualized pharyngeal soft tissues are normal in appearance noting angiographic pha se technique. The oropharyngeal airway appears widely patent. The thyroid gland is atrophic. The sali vary glands are normal in appearance. No cervical lymphadenopathy is seen. Skeletal structures: The skeletal structures are osteopenic. The calvarium appears intact. The cervic al spine is maintained noting mild multilevel spondylosis. No lytic or blastic lesion is seen. Orbits: The bony orbits are intact. Orbital contents are normal as visualized noting bilateral ocular lens implants. Sinuses and mastoids: The paranasal sinuses are clear. There is a right mastoid effusion. The left ma stoid air cells are well pneumatized. IMPRESSION: 1. Pulmonary emboli are seen within branches of the right upper lobe pulmonary artery. 2. There is no hemorrhage, mass effect, or evidence of acute territorial ischemia by CT criteria. 3. Unremarkable CT angiogram of the neck. 4. Asymmetric calcifications are again seen in the left basal ganglia. There are abnormal vessels in this region, likely representing an AVM. A developmental venous anomaly could have this appearance bu t is considered less likely. This finding is of doubtful acute significance and has been present on s tudies dating back to at least 2013. 5. Otherwise unremarkable CT angiogram of the brain. ACT 112: Negative or not required by law. Electronically signed by: Andrae Schofield M.D. 04/23/2020 11:46 AM
[2020-04-23] MEDS ORDERED: ENOXAPARIN 80 MG/0.8 ML SYR SQ ONE (12:00)
[2020-04-23 12:14] LABS: Appearance Urine Clear (Clear); Bacteria Urine Automated Negative (Negative); Bilirubin Urine Negative (Negative); Blood Urine Negative (Negative); Cast Urine Automated 0 /lpf (0-5); Color Urine Yellow; Glucose Urine UA Negative (Negative); Ketones Urine Negative (Negative); Leukocyte Esterase Urine 1+ (Negative); Nitrite Urine Negative (Negative); Protein Urine Negative (Negative); RBC Urine Automated 0-4 /hpf (0-4); Specific Gravity Urine 1.019 (1.000-1.030); Urobilinogen Urine Negative (Negative); pH Urine 8.5 (4.5-7.5)
--- NOTE | 2020-04-23 12:59 | Ultrasound Report ---
BILATERAL LOWER EXTREMITY VENOUS DOPPLER HISTORY: Pulmonary embolus. Assess for DVT. COMPARISON STUDY: None. FINDINGS: There is normal compressibility, flow, and augmentation within the bilateral lower extremit y deep venous systems. IMPRESSION: No DVT within the right or left lower extremity. ACT 112: Negative or not required by law. Electronically signed by: Abhinav Morfin M.D. 04/23/2020 12:57 PM
--- NOTE | 2020-04-23 13:30 | History & Physical Report ---
Date of Service April 23, 2020 Assessment & Plan (1) Pulmonary embolism: -MedSurg with telemetry -Start on Lovenox 80 mg subcu q12h -Likely can transition to a NOAC tomorrow -CTA of chest in am to determine clot burden -Venous dopplers legs bilaterally are negative for DVT - pt reports being more sedentary in the past week due to worsening weakness from dizziness/vertigo (2) Vertigo: - CT head showing possible AVM from scans, wonder if pt had TIA a week ago, with word finding difficulty, nausea, vomiting, weakness and unsteady gait - these symptoms although primarily resolved, are present. gait was not assessed but pt reports using a walker through her house in the past week due to imbalance. - Neuro consulted - Contin as 81 mg - Lovenox as above - PT/OT consults (3) Nausea & vomiting: - Hx of such, improved currently - Cont zofran prn (4) Dyslipidemia: - Hx of such, not on statin therapy (5) Depression: - Cont sertraline (6) Anxiety: - Hs of such, will continue buspar 10 mg TID, sertraline 50 mg daily (7) Hypothyroidism: - levothyroxine 75 mcg daily DVT- teds, scds, lovenox CODE: Full code Dispo: From home, likely to remain in the hospital x 1-2 days History of Present Illness Primary Care Provider: IMELDA Garcia This is a 79-year-old female with PMHx of anxiety, depression, pulmonary lung nodules, HLD, GERD, and history of vertigo-like symptoms which have been ongoing for about 1 week. She presented to the ER on 04/18/2020 with complaints of lightheadedness, dizziness, difficulty word finding, weakness, dysfunction with ambulation and needing a walker where she typically does not require one, and shad a negative neurological exam but did not have imaging studies for stroke work-up completed at that point. She was diagnosed with having vertigo and was sent home with Zofran and meclizine. Reports feeling better in the last week with these 2 medications but that she has still had some episodes of feeling lightheaded dizzy. Today on work-up it was found that the patient had subsequent right upper lobe PE on head/neck CTA. She denies any respiratory- like complaints, denies shortness of breath, no dyspnea on exertion, no cough, fever or chills. She lives at home with her . Patient denies any COVID- 19 positive contacts, travel. She is very anxious at bedside and asked if she will have a second Covid swab before she goes home. Patient is concerned and is asking for anxiolytic medication which she takes routinely at home. The only medication she took today was levothyroxine 75 mcg early this morning. Allergies Allergy/AdvReac Type Severity Reaction Status Date / Time levofloxacin Allergy Intermediate QUINOLONES-JOINT Verified 04/23/20 13:16 PAIN EDEMA lumiracoxib Allergy Intermediate TRILISATE-TINNITUS,CONFUSION,RAPID Verified 04/23/20 13:16 HEART RATE zolpidem Allergy Intermediate MUSCLE PAIN Verified 04/23/20 13:16 choline salicylate Allergy Mild tinnitus/co Verified 04/23/20 13:16 nfusion/tac hycardia ciprofloxacin Allergy Mild RASH Verified 04/23/20 13:16 clindamycin Allergy Mild RASH Verified 04/23/20 13:16 homatropine Allergy Mild RASH Verified 04/23/20 13:16 magnesium salicylate Allergy Mild tinnitus/co Verified 04/23/20 13:16 nfusion/tac hycardia Penicillins Allergy Mild RASH Verified 04/23/20 13:16 phenobarbital Allergy Mild RASH Verified 04/23/20 13:16 Quinolones Allergy Mild LEVAQUIN-JOINT Verified 04/23/20 13:16 PAIN,EDEMA terfenadine Allergy Mild HEADACHES Verified 04/23/20 13:16 Trilisate Allergy Mild tinnitus/co Verified 12/26/15 10:23 nfusion/tac hycardia atropine Allergy Unknown UNKNOWN Verified 04/23/20 13:16 hyoscyamine Allergy Unknown UNKNOWN Verified 04/23/20 13:16 metronidazole Allergy Unknown UNKNOWN Verified 04/23/20 13:16 nabumetone Allergy Unknown UNKNOWN Verified 04/23/20 13:16 pantoprazole Allergy Unknown UNKNOWN Verified 04/23/20 13:16 scopolamine Allergy Unknown UNKNOWN Verified 04/23/20 13:16 tetracycline Allergy Unknown UNKNOWN Verified 04/23/20 13:16 astemizole AdvReac Intermediate HISMANAL-HE Verified 04/23/20 13:16 ADACHES capsaicin AdvReac Mild HEADACHE Verified 04/23/20 13:16 Cephalosporins AdvReac Mild CEFTIN-GI Verified 04/23/20 13:16 upset diclofenac AdvReac Mild HEADACHE Verified 04/23/20 13:16 Diclopak AdvReac Mild HEADACHE Verified 12/26/15 14:50 etodolac AdvReac Mild LODINE-HEAD Verified 04/23/20 13:16 ACHE fentanyl AdvReac Mild DIZZINESS Verified 04/23/20 13:16 oxaprozin AdvReac Mild DAYPRO-NAUSEA Verified 04/23/20 13:16 AND VOMITING oxycodone AdvReac Mild HALLUCINATI Verified 04/23/20 13:16 ONS,DISORIE NTATION pseudoephedrine AdvReac Mild GUAIMAX Verified 04/23/20 13:16 D-GI UPSET INSOMNIA DISORIENTATION RAPID HEART RATE Dehydrocholic Acid Allergy Mild UNKNOWN Uncoded 04/23/20 13:16 Home Medications Medication Instructions Recorded Confirmed Type Move Free Joint Health 1 tab PO HS 05/02/18 04/23/20 History melatonin 10 mg PO HS PRN 05/02/18 04/23/20 History cholecalciferol (vitamin D3) 2,000 unit PO HS 07/13/18 04/23/20 History [Vitamin D3] aspirin 81 mg PO QAM 08/02/18 04/23/20 History tlpwdffgzzkd-ffvr-adyld acid 1 tab PO HS 01/18/19 04/23/20 History [Centrum] loratadine 10 mg tablet 10 mg PO DAILY #30 tab 02/27/19 04/23/20 Rx cyanocobalamin (vitamin B-12) 5,000 mcg PO WEEKLY cap 04/12/19 04/23/20 History 5,000 mcg capsule buspirone 10 mg tablet 10 mg PO TID #270 tab 01/25/20 04/23/20 Rx levothyroxine 75 mcg tablet 75 mcg PO DAILY #90 tab 02/18/20 04/23/20 Rx sertraline 50 mg tablet 50 mg PO DAILY #90 tab 02/18/20 04/23/20 Rx calcium carbonate-mag hydroxid 2 tab PO DIRECTED PRN 04/17/20 04/23/20 History [Rolaids] meclizine 25 mg tablet 25 mg PO TID PRN #30 tab 04/18/20 04/23/20 Rx ondansetron HCl 4 mg tablet 4 mg PO Q8H PRN #30 tab 04/18/20 04/23/20 Rx Past Med/Surg History Medical History Anxiety Artificial menopause state Depression Fibroma of lip GERD (gastroesophageal reflux disease) Hypothyroidism Insomnia Osteoarthritis Papilloma of oral cavity Urinary leakage Surgical History History of adenoidectomy History of bilateral tubal ligation History of cataract surgery RT/LEFT History of cholecystectomy History of colonoscopy History of esophagogastroduodenoscopy (EGD) History of tonsillectomy History of tooth extraction History of total abdominal hysterectomy and bilateral salpingo-oophorectomy History of total knee replacement RT Family History Sister Family history of diabetes mellitus Hypertension Allergies Other No family history of adverse response to anesthesia No family history of bleeding disorder Social History Smoking Status: Never smoker Second Hand Exposure: Yes (IN THE PAST); Hx Alcohol Use: No Hx Substance Use: No Preferred Language: Yakut Communication Ability: Effective Desulphurizer Operator Required: No Beliefs That Will Affect Care: None Current Living Situation: Spouse current occupational status: retired Feels Safe at Home: Yes Assistive Devices: Glasses and Hearing Aid - Bilateral Review of Systems Review of Systems: Constitutional: No fever, sweats or chills, + lightheadedne ss, dizziness occasionally Eyes: No diplopia, no worsening or blurred vision ENT: normal hearing, no trouble swallowing Respiratory: No cough, sputum, dyspnea at rest or on exertion Cardiovascular: No chest pain, tightness or palpitations Abdomen: No pain, nausea, vomiting, diarrhea or constipation Musculoskeletal: No joint pain, calf pain, swelling Neurologic: No weakness, numbness/tingling, + 1 week of balance problems, requiring walker Psychiatric: + anxiety and depression Skin: No rash or itch Physical Exam Physical Exam: General: awake, alert, no apparent distress, + obese, anxious Head: Normocephalic, atraumatic ENT: PERRL, EOMI, no pharyngeal exudate, +mucous membranes slightly dry Chest: Clear to auscultation, on room air with o2 sats at 97%, no adventitious breath sounds Cardiac: Regular rate and rhythm, no murmur, no JVD, normal peripheral pulses, good capillary refill Abdominal: NABS x 4 quadrants, soft, nondistended, nontender to palpation, no rebound or guarding Extremities: Normal inspection, no peripheral edema or erythema, calfs nontender to palpation Psych: Anxious mood and affect Neuro: AAO x 3, strength intact bilaterally and rated 4/5, no motor deficits, speech is clear, no peripheral sensory deficits Results & Data Results & Data ([facility]) Vital Signs (Past 12 Hours) Vital Signs Temp Pulse Pulse Resp BP BP Pulse Ox 04/23/20 13:11 51 L 16 170/72 H 98 04/23/20 13:10 58 L 21 04/23/20 12:30 54 L 14 167/68 H 100 04/23/20 12:20 58 L 16 97 04/23/20 12:10 55 L 13 96 04/23/20 12:00 52 L 16 150/69 H 04/23/20 11:50 58 L 13 04/23/20 11:40 58 L 16 97 04/23/20 11:31 59 L 18 174/71 H 94 04/23/20 11:30 59 L 17 97 04/23/20 11:21 63 21 04/23/20 11:00 47 L 17 150/71 H 97 04/23/20 10:50 53 L 14 04/23/20 10:40 51 L 13 94 04/23/20 10:30 48 L 18 144/66 H 97 04/23/20 10:24 50 L 20 147/84 H 98 04/23/20 10:20 49 L 23 98 04/23/20 10:14 53 L 17 98 04/23/20 10:08 53 L 17 147/84 H 98 04/23/20 09:56 36.6 C 59 L 16 134/69 96 Diagnostic Findings UNENHANCED CT OF THE BRAIN; CT ANGIOGRAM OF THE BRAIN; CT ANGIOGRAM OF THE NECK CLINICAL HISTORY: Strokelike symptoms. Vertigo. COMPARISON STUDY: CT of the brain dated 05/02/2018 and 01/01/2014. TECHNIQUE: Unenhanced axial CT scan of the brain is performed. Subsequently, following the IV administration of 119 of Optiray 320, CT angiogram of the head and neck was performed from the aortic arch to the vertex. Images are reviewed in the axial, sagittal, and coronal planes. 3-D MIPS images are created and assessed. IV contrast was administered without complication. All measurements were calculated based on NASCET criteria. A dose lowering technique was utilized adhering to the principles of ALARA. CT DOSE: 1096.70 mGy.cm FINDINGS: Brain parenchyma: There is minimal microangiopathic change. There is no hemorrhage, mass effect, or evidence of acute territorial ischemia by CT criteria. There is no evidence of enhancing mass lesion on the angiogram phase images. The ventricles, sulci, and cisterns are normal in configuration. Garcia- white matter differentiation is preserved. No extra-axial fluid collection is seen. Mineralization is again seen in the left basal ganglia. Thoracic aorta: There is mild atherosclerotic calcification of the thoracic aorta. Visualized portions of the thoracic aorta are normal in caliber. The a ortic arch demonstrates bovine variant anatomy. Right carotid arterial system: The right common carotid artery is widely patent, as are the right internal and external carotid arteries. Left carotid arterial system: The left common carotid artery is widely patent, as are the left internal and external carotid arteries. Vertebral arteries: The vertebral arteries are patent bilaterally noting left- sided dominance. Subclavian arteries: Widely patent bilaterally. Intracranial vasculature: The [place] of [place] is developmentally complete. The internal carotid arteries are patent at the skull base, as are the anterior and middle cerebral arteries bilaterally. The vertebrobasilar system and posterior cerebral arteries are widely patent. The left vertebral artery is dominant. There is no aneurysm, high-grade stenosis, or focal vessel cut off seen throughout the intracranial circulation. There is a large draining vessel in the region of the left basal ganglia calcifications seen on image #83, likely resenting an AVM. Jugular veins: Patent bilaterally. Dural sinuses: Patent. Upper chest: Partially visualized upper lobe lung parenchyma appears clear. There are pulmonary emboli within branches of the right upper lobe pulmonary artery seen on image #12. Soft tissues: The visualized pharyngeal soft tissues are normal in appearance noting angiographic phase technique. The oropharyngeal airway appears widely patent. The thyroid gland is atrophic. The salivary glands are normal in appearance. No cervical lymphadenopathy is seen. Skeletal structures: The skeletal structures are osteopenic. The calvarium appears intact. The cervical spine is maintained noting mild multilevel spondylosis. No lytic or blastic lesion is seen. Orbits: The bony orbits are intact. Orbital contents are normal as visualized noting bilateral ocular lens implants. Sinuses and mastoids: The paranasal sinuses are clear. There is a right mastoid effusion. The left mastoid air cells are well pneumatized. IMPRESSION: 1. Pulmonary emboli are seen within branches of the right upper lobe pulmonary artery. 2. There is no hemorrhage, mass effect, or evidence of acute territorial ischemia by CT criteria. 3. Unremarkable CT angiogram of the neck. 4. Asymmetric calcifications are again seen in the left basal ganglia. There are abnormal vessels in this region, likely representing an AVM. A developmental venous anomaly could have this appearance but is considered less likely. This finding is of doubtful acute significance and has been present on studies dating back to at least 2013. 5. Otherwise unremarkable CT angiogram of the brain. BILATERAL LOWER EXTREMITY VENOUS DOPPLER HISTORY: Pulmonary embolus. Assess for DVT. COMPARISON STUDY: None. FINDINGS: There is normal compressibility, flow, and augmentation within the bilateral lower extremity deep venous systems. IMPRESSION: No DVT within the right or left lower extremity. KUB CLINICAL HISTORY: Vomiting. COMPARISON STUDY: Abdominal series April 17, 2020. FINDINGS: Incidental note is made of cholecystectomy clips. The bowel gas pattern is normal. A mild to moderate amount stool within colon and rectum is noted. This is within normal limits. IMPRESSION: No evidence for a bowel obstruction. XR chest 1V portable CLINICAL HISTORY: Stroke Like Symptoms COMPARISON STUDY: Chest radiograph April 17, 2020. FINDINGS: Lung volumes are normal. Lungs are clear. There is no pneumothorax or pleural effusion. Cardiac size is stable. Mediastinal contours are normal. There is no evidence for pulmonary edema. IMPRESSION: No acute cardiopulmonary findings. ECG Additional Comments: 23-APR-2020 10:07:17 [facility] [place]-EDSTAT ROUTINE RETRIEVAL Sinus bradycardia Otherwise normal ECG When compared with ECG of 17-APR-2020 01:09, Nonspecific T wave abnormality now evident in Lateral leads 25mm/s 10mm/mV 150Hz 9.0.9 12SL 241 ULISSES: 10 Unconfirmed Vent. rate 51 BPM KS interval 166 ms QRS duration 70 ms QT/QTc 446/411 ms Code Status & VTE Plan Code Status Full code-discussed with the patient Supervising Physician Co-Signing Physician Notes Patient was seen and examined independently I discussed the case with Myrtle Farah PAC I reviewed pertinent past medical social family history and also the plan of car e and agree with the plan of care. Patient had vertigo over the last few days she is even was in the ER for that one time. She returns with vertigo and upon imaging evaluation of her head and neck with angiography pulmonary believes was discovered in upper branches of her pulmonary arteries. She has some old changes over brain which may be arteriovenous malformations but these are stable since 2013. Patient is admitted for treatment of her pulmonary embolism with Lovenox therapy. Patient has negative DVT study of her lower legs. This appears to be an unprovoked DVT which will allow us to have further evaluation for possible inflammatory factors. Be unlikely that she has an inherited hypercoagulable state given the fact that she is 79 years old and has not had an issue prior to this Patient is awake alert she is very anxious about Covid she is having mild shortness of breath Lungs are clear her heart is regular with a systolic murmur Extremities are with mild edema likely chronic venous stasis as her BMI is 34 Admitted to our facility kept on telemetry have an echocardiogram she be started on enoxaparin with hopeful transitions to a DOAC Any exceptions will be noted below PG Care Time/CCT Total # of Minutes Spent Total Time Spent with Patient: Total time spent is greater than 50% in coordination of care (as documented) at patient's floor/unit and/or counseling patient: Coding Level of Care Code 58262 OBS Care - Level 3 Diagnoses Pulmonary embolism I26.99 Acute cor pulmonale presence: unspecified Chronicity: acute Pulmonary embolism type: unspecified Vertigo R42 Nausea & vomiting R11.2 Vomiting Intractability: non-intractable Vomiting type: unspecified Dyslipidemia E78.5 Depression F32.9 Anxiety F41.9 Hypothyroidism E03.9 (1) Pulmonary embolism Acute cor pulmonale presence: unspecified Chronicity: acute Pulmonary embolism type: unspecified Qualified Code(s): I26.99 - Other pulmonary embolism without acute cor pulmonale (2) Nausea & vomiting Vomiting Intractability: non-intractable Vomiting type: unspecified Qualified Code(s): R11.2 - Nausea with vomiting, unspecified
[2020-04-23] MEDS ORDERED: CALCIUM CARBONATE 500 MG CHEWABLE TAB PO PRN (16:40)
[2020-04-23] MEDS ORDERED: ONDANSETRON 4 MG OD TAB PO PRN (16:40)
[2020-04-23] MEDS ORDERED: ONDANSETRON INJ 2 MG/ML 2 ML VIAL IV PRN (16:40)
[2020-04-23] MEDS ORDERED: MELATONIN 3 MG TAB PO PRN (16:40)
[2020-04-23] MEDS ORDERED: ACETAMINOPHEN 325 MG TAB PO PRN (16:40)
[2020-04-23] MEDS ORDERED: ENOXAPARIN 1 MG/KG SQ SCH (16:40)
[2020-04-23] MEDS ORDERED: MECLIZINE HCL 25 MG TAB PO PRN (16:40)
[2020-04-23] MEDS: busPIRone 5 MG TAB PO SCH ×2 (17:20→20:42)
[2020-04-23 17:30] LABS: NT Pro B Type Natriuretic Pept 337 pg/ml (0-1800); Troponin I < 0.015 ng/ml (0-0.045)
[2020-04-23] MEDS: CEROVITE ADV FORMULA TAB PO SCH (20:42)
[2020-04-23] MEDS: ENOXAPARIN 80 MG/0.8 ML SYR SQ SCH (20:43)
[2020-04-23] MEDS: GLUCOSAMINE SULFATE 500 MG CAP PO SCH (20:45)
[2020-04-23] MEDS ORDERED: GLUCOSAMINE SULFATE 500 MG CAP PO SCH (21:00)
[2020-04-23] MEDS ORDERED: POLYETHYLENE (MIRALAX) 17 GM PACK PO PRN (21:12)
[2020-04-23] MEDS: CHOLECALCIFEROL 1,000 UNITS 25 MCG TAB PO SCH (21:51)
[2020-04-24] MEDS: LEVOTHYROXINE SODIUM 75 MCG TABLET PO SCH (06:32)
--- NOTE | 2020-04-24 06:33 | Electrocardiogram Report ---
Test Reason : Blood Pressure : / mmHG Vent. Rate : 051 BPM Atrial Rate : 051 BPM P-R Int : 166 ms QRS Dur : 070 ms QT Int : 446 ms P-R-T Axes : 054 023 061 degrees QTc Int : 411 ms Sinus bradycardia Otherwise normal ECG When compared with ECG of 17-APR-2020 01:09, No significant change Confirmed by Will Gordon ([id number]) on 04/24/2020 6:33:20 AM Referred By: Confirmed By:Will Gordon
[2020-04-24 07:28] LABS: Hemoglobin 13.7 g/dL (12.0-16.0); Mean Corpuscular Hemoglobin 29.2 pg (25-34); Mean Corpuscular Hgb Conc 33.4 g/dL (32-36); Mean Corpuscular Volume 87.4 fL (80-100); Mean Platelet Volume 9.8 fL (7.4-10.4); Platelet Count 229 K/uL (130-400); RDW Coefficient of Variation 13.5 % (11.5-14.5); RDW Standard Deviation 43.5 fL (36.4-46.3); Red Blood Count 4.69 M/uL (4.2-5.4); White Blood Count 4.38 K/uL (4.8-10.8)
[2020-04-24 07:59] LABS: BUN Creatinine Ratio 13.2 (10-20); Calcium 8.9 mg/dl (8.5-10.1); Creatinine Clr Calc Pharmacy 39.2 ml/min; Est GFR (African American) 52.1; Est GFR (Non-African American) 44.9; Potassium 3.8 mmol/L (3.5-5.1)
[2020-04-24 08:02] LABS: Albumin Globulin Ratio 0.9 (0.9-2); Bilirubin,Total 0.7 mg/dl (0.2-1); Globulin 3.4 gm/dl (2.5-4.0); Total Protein 6.4 gm/dl (6.4-8.2)
[2020-04-24] MEDS: ASPIRIN 81 MG ECTAB PO SCH (08:02)
[2020-04-24] MEDS: SERTRALINE HCL 50 MG TABLET PO SCH (08:02)
[2020-04-24] MEDS: LORATADINE 10 MG TAB PO SCH (08:02)
[2020-04-24] MEDS: busPIRone 5 MG TAB PO SCH ×3 (08:02→20:08)
[2020-04-24] MEDS: ENOXAPARIN 80 MG/0.8 ML SYR SQ SCH (09:21)
[2020-04-24] MEDS ORDERED: OPTIRAY 320 125ml IV ONE (09:50)
--- NOTE | 2020-04-24 10:21 | CT Scan Report ---
CT ANGIOGRAPHY OF THE CHEST, PULMONARY EMBOLUS PROTOCOL CLINICAL HISTORY: Shortness of breath and cough. COMPARISON STUDY: Chest CT May 18, 2019. Chest radiograph April 23, 2020. CTA of the neck Dec ember 2019. TECHNIQUE: Following IV administration of 120 mL of Optiray-320, helical axial images of the chest we re obtained utilizing the pulmonary embolus protocol. Maximal intensity projections and sagittal and coronal reformats were viewed on an independent 3D workstation. IV contrast was administered withou t complication. Automated exposure control was utilized for the study. A dose lowering technique wa s utilized adhering to the principles of ALARA. CT DOSE: 454.64 mGy.cm FINDINGS: Note is made of a segmental pulmonary embolus within the right upper lobe shown on image 1 61 of 248. This corresponds to the pulmonary embolus shown on CTA of the neck of April 23, 2020. N o central pulmonary embolus is present. There is no pulmonary infarct. Mild cardiomegaly is noted. No enlarged thoracic lymph nodes are noted. Lungs are suboptimally assessed given respiratory motion. T here are scattered ill-defined nodules within the lungs, predominantly within a tree-in-bud distribut ion. These measure up to 5 mm. No pneumothorax or pleural effusion is noted. Bony thorax is unremarka ble. Gallbladder surgically absent. IMPRESSION: 1. Segmental pulmonary embolus within the right upper lobe. No central pulmonary emboli. 2. Scattered nodules within the lungs, predominantly within a tree-in-bud distribution. This favors a n infectious or inflammatory process. A follow-up chest CT in 3 months to ensure resolution is recomm ended. 3. Mild cardiomegaly. ACT 112: Negative or not required by law. Electronically signed by: Lukas Solis M.D. 04/24/2020 10:20 AM
[2020-04-24] MEDS ORDERED: AZITHROMYCIN 250 MG TAB PO ONE (10:31)
--- NOTE | 2020-04-24 11:21 | Discharge Summary ---
Date of Service April 25, 2020 Admission HPI Per Admitting Provider This is a 79-year-old female with PMHx of anxiety, depression, pulmonary lung nodules, HLD, GERD, and history of vertigo-like symptoms which have been ongoing for about 1 week. She presented to the ER on 04/18/2020 with complaints of lightheadedness, dizziness, difficulty word finding, weakness, dysfunction with ambulation and needing a walker where she typically does not require one, and shad a negative neurological exam but did not have imaging studies for stroke work-up completed at that point. She was diagnosed with having vertigo and was sent home with Zofran and meclizine. Reports feeling better in the last week with these 2 medications but that she has still had some episodes of feeling lightheaded dizzy. Today on work-up it was found that the patient had subsequent right upper lobe PE on head/neck CTA. She denies any respiratory- like complaints, denies shortness of breath, no dyspnea on exertion, no cough, fever or chills. She lives at home with her . Patient denies any COVID-19 positive contacts, travel. She is very anxious at bedside and asked if she will have a second Covid swab before she goes home. Patient is concerned and is asking for anxiolytic medication which she takes routinely at home. The only medication she took today was levothyroxine 75 mcg early this morning. Admission Exam Per Admitting Provider Physical Exam: General: awake, alert, no apparent distress, + obese, anxious Head: Normocephalic, atraumatic ENT: PERRL, EOMI, no pharyngeal exudate, +mucous membranes slightly dry Chest: Clear to auscultation, on room air with o2 sats at 97%, no adventitious breath sounds Cardiac: Regular rate and rhythm, no murmur, no JVD, normal peripheral pulses, good capillary refill Abdominal: NABS x 4 quadrants, soft, nondistended, nontender to palpation, no rebound or guarding Extremities: Normal inspection, no peripheral edema or erythema, calfs nontender to palpation Psych: Anxious mood and affect Neuro: AAO x 3, strength intact bilaterally and rated 4/5, no motor deficits, speech is clear, no peripheral sensory deficits Principal Diagnosis Pulmonary Embolism Discharge Exam General: awake, alert, no apparent distress, + obese, anxious Head: Normocephalic, atraumatic ENT: PERRL, EOMI, no pharyngeal exudate, mucous membranes moist Chest: Clear to auscultation, on room air with o2 sats at 97%, no adventitious breath sounds Cardiac: Regular rate and rhythm, no murmur, no JVD, normal peripheral pulses, good capillary refill Abdominal: NABS x 4 quadrants, soft, nondistended, nontender to palpation, no rebound or guarding Extremities: Normal inspection, no peripheral edema or erythema, calfs nontender to palpation Psych: Anxious mood and affect Neuro: AAO x 3, strength intact bilaterally and rated 5/5, normal gait, no motor deficits, speech is clear, no peripheral sensory deficits Discharge Data Allergies Allergy/AdvReac Type Severity Reaction Status Date / Time levofloxacin Allergy Intermediate QUINOLONES-JOINT Verified 04/23/20 13:16 PAIN EDEMA lumiracoxib Allergy Intermediate TRILISATE-TINNITUS,CONFUSION,RAPID Verified 04/23/20 13:16 HEART RATE zolpidem Allergy Intermediate MUSCLE PAIN Verified 04/23/20 13:16 choline salicylate Allergy Mild tinnitus/co Verified 04/23/20 13:16 nfusion/tac hycardia ciprofloxacin Allergy Mild RASH Verified 04/23/20 13:16 clindamycin Allergy Mild RASH Verified 04/23/20 13:16 homatropine Allergy Mild RASH Verified 04/23/20 13:16 magnesium salicylate Allergy Mild tinnitus/co Verified 04/23/20 13:16 nfusion/tac hycardia Penicillins Allergy Mild RASH Verified 04/23/20 13:16 phenobarbital Allergy Mild RASH Verified 04/23/20 13:16 Quinolones Allergy Mild LEVAQUIN-JOINT Verified 04/23/20 13:16 PAIN,EDEMA terfenadine Allergy Mild HEADACHES Verified 04/23/20 13:16 Trilisate Allergy Mild tinnitus/co Verified 12/26/15 10:23 nfusion/tac hycardia atropine Allergy Unknown UNKNOWN Verified 04/23/20 13:16 hyoscyamine Allergy Unknown UNKNOWN Verified 04/23/20 13:16 metronidazole Allergy Unknown UNKNOWN Verified 04/23/20 13:16 nabumetone Allergy Unknown UNKNOWN Verified 04/23/20 13:16 pantoprazole Allergy Unknown UNKNOWN Verified 04/23/20 13:16 scopolamine Allergy Unknown UNKNOWN Verified 04/23/20 13:16 tetracycline Allergy Unknown UNKNOWN Verified 04/23/20 13:16 astemizole AdvReac Intermediate HISMANAL-HE Verified 04/23/20 13:16 ADACHES capsaicin AdvReac Mild HEADACHE Verified 04/23/20 13:16 Cephalosporins AdvReac Mild CEFTIN-GI Verified 04/23/20 13:16 upset diclofenac AdvReac Mild HEADACHE Verified 04/23/20 13:16 Diclopak AdvReac Mild HEADACHE Verified 12/26/15 14:50 etodolac AdvReac Mild LODINE-HEAD Verified 04/23/20 13:16 ACHE fentanyl AdvReac Mild DIZZINESS Verified 04/23/20 13:16 oxaprozin AdvReac Mild DAYPRO-NAUSEA Verified 04/23/20 13:16 AND VOMITING oxycodone AdvReac Mild HALLUCINATI Verified 04/23/20 13:16 ONS,DISORIE NTATION pseudoephedrine AdvReac Mild GUAIMAX Verified 04/23/20 13:16 D-GI UPSET INSOMNIA DISORIENTATION RAPID HEART RATE Dehydrocholic Acid Allergy Mild UNKNOWN Uncoded 04/23/20 13:16 Consultations 04/23/20 13:30 ED Decision to Admit Stat 04/23/20 16:40 Consult Case Management - Discharge Planning Routine Consult Neurology Routine 04/24/20 10:53 [facility] COPD/Pnx Program Referral Routine Ordered Studies 04/23/20 10:14 CT angio head w con Stat CT angio neck with con Stat CT head/brain wo con Stat 04/23/20 12:00 US venous doppler LE BI Stat 04/24/20 08:50 CT angio chest PE protocol Stat MRI lukasz with out acute CVA Hospital Course (1) Pulmonary embolism: -MedSurg with telemetry -Start on Lovenox 80 mg subcu q12h -transition to xarelto on discharge - CM to provide coupon to pt for pickup. -CTA of chest shows segmental PE in RUL, no central PE -Venous dopplers legs bilaterally are negative for DVT - pt reports being more sedentary in the past week due to worsening weakness from dizziness/vertigo, no other known mechanism of injury. Pt reports having colonoscopy and mammography in the past few years and were negative for any abnormal findings. No events on telemetry, no known cardiac arrhythmias per pt. May consider a holter monitor as an outpatient. Will defer further workup to PCP as this seems unprovoked. (2) Vertigo: - CT head showing possible AVM from scans, wonder if pt had TIA a week ago, with word finding difficulty, nausea, vomiting, weakness and unsteady gait - these symptoms although primarily resolved, are present. gait is normal today, pt walked about to the bathroom without needs for assistance. Pt reports using a walker through her house in the past week due to imbalance. - Neuro consulted - AVM as seen on CTA of the head is old from back to 2013, unlikely cause of acute events, appreciate recs. MRI of brain without concern for acute cva - Contin as 81 mg - Anticoagulation as above - PT/OT consults - if needs home health then will ask CM to set up (3) Nausea & vomiting: - Hx of such, improved currently - Cont zofran prn (4) Dyslipidemia: - Hx of such, not on statin therapy (5) Depression: - Cont sertraline (6) Anxiety: - Hs of such, will continue buspar 10 mg TID, sertraline 50 mg daily - discussed behavior modifications with the patient such as deep breathing, meditation, relaxation, reading a book to help focus on another thing, etc. to assist with level of anxiety. Pt was receptive to this. Consider outpatient counseling if the pt would be agreeable to it. (7) Hypothyroidism: - levothyroxine 75 mcg daily CODE: Full code Total Time Total Time Spent Total Time Spent (In Minutes): 40 minutes Discharge Plan Discharge Items Patient Disposition: Home - Home Health Services Reason For Visit: PULMONARY EMBOLIS, NAUSEA, VOMITING Discharge Diagnosis: Pulmonary Embolism Condition on Discharge: Good Activity: Resume your previous activity Lifting: Gradually increase as tolerated Bathing: No limitations Exercise/Sports: Gradually increase as tolerated Driving/Machine Use: No limitations Weightbearing: Full weightbearing Non-emergency contact: Primary Care Provider Call non-emergency contact if: your symptoms worsen and your pain is not controlled Follow-up/Referrals: Ena Vogt CRNP [Primary Care Provider] - 04/29/20 9:30 am (You have an appt with Ena Vogt Sunday 04/29 at 0930am. Please arrive 15 minutes prior to your appt. It is important that you keep this appt, if it does not fit your schedule please call [phone] to reschedule. ) Diet: Heart Healthy Addtl Attending Provider Instructions: You were admitted to [facility] due to lightheadedness and diagnosed with pulmonary embolism. During your stay here you were treated with supportive care, medications and your symptoms improved. Imaging studies which were completed include imaging of the brain which showed small AVM ( blood vessel abnormality in the brain which has been present since 2013, please follow up with PCP. Imaging studies were negative for a stroke. Your imaging studies (CTA) of the chest, showed small pulmonary embolism (blood clot) in the right upper lobe of your lungs. You should continue taking the blo od thinner, Xarelto as prescribed, and follow with PCP for why you developed this blood clot. It also showed lung nodules which were also known about from before, but should be followed by the [facility], a referral has been requested for them to call you. Continue taking azithromycin, and antibiotic, for imagining on your chest scans to help with inflammation as directed. Your anxiety and stress level is elevated and likely causing secondary issues such as headache, lightheadedness, and upset stomach like you described. Please try behavior modification exercises like deep breathing, meditation, relaxation, reading a calming book, exercise and stretching to help with stress. Ask you PCP about seeing a counselor to assist in working on these techniques. Medications: Continue taking your medications as prescribed: Xarelto 15 mg twice daily x 21 days, then switch to 20 mg daily thereafter - for blood clot in lungs Azithromycin 250 mg x 4 days - for lungs Omeprazole 40 mg daily - for stomach upset, and so you do not need to consume numerous rolaids daily. Appointments: Follow up with PCP within 1 week,scheduled for Apr 29 at 9:30 AM Pending Studies at Discharge: No Stand-Alone Forms: My [facility], Smoking Cessation Medications and DC Order Prescriptions: New azithromycin 250 mg Tablet 250 mg PO QAM Qty: 4 RF: 0 Xarelto 15 mg Tablet 15 mg PO BID Qty: 42 RF: 0 omeprazole 40 mg capsule,delayed release(DR/EC) 40 mg PO DAILY Qty: 30 RF: 0 Continued cyanocobalamin (vitamin B-12) 5,000 mcg capsule 5,000 mcg PO WEEKLY RF: 0 buspirone 10 mg tablet 10 mg PO TID Qty: 270 RF: 1 levothyroxine 75 mcg tablet 75 mcg PO DAILY Qty: 90 RF: 3 sertraline [Zoloft] 50 mg tablet 50 mg PO DAILY Qty: 90 RF: 3 loratadine [Claritin] 10 mg tablet 10 mg PO DAILY Qty: 30 RF: 6 meclizine 25 mg tablet 25 mg PO TID PRN (Reason: dizziness) Qty: 30 RF: 0 ondansetron HCl 4 mg tablet 4 mg PO Q8H PRN (Reason: nausea and vomiting) Qty: 30 RF: 0 melatonin 10 mg Tablet 10 mg PO HS PRN (Reason: Insomnia) RF: 0 Move Free Joint Health 750 mg-100 mg- 1.65 mg-108 mg Tablet 1 tab PO HS RF: 0 cholecalciferol (vitamin D3) [Vitamin D3] 2,000 unit Capsule 2,000 unit PO HS RF: 0 aspirin 81 mg Tablet,Delayed Release (Dr/Ec) 81 mg PO QAM RF: 0 Centrum 18-400 mg-mcg Tablet 1 tab PO HS RF: 0 Rolaids 550-110 mg Tablet,Chewable 2 tab PO DIRECTED PRN (Reason: UPSET STOMACH) RF: 0 Discharge Orders: Discharge Order (Routine); Ordered 04/25/20 Ordered By: Jaciel Stewart Admission Data Admit Date/Time: 04/23/20 15:00 Attending Provider: Jaciel Stewart Admit Provider: Jaciel Stewart Primary Care Provider: Ena Vogt Other Providers: Jaciel Stewart ; Lukasz Thomas ; [facility] Other Interventions: Discharge Summary Assessment (RN) Last Done: 04/25/20 11:55 Supervising Physician Co-Signing Physician Notes Patient was seen and examined independently I discussed the case with Myrtle Farah PAC I reviewed pertinent past medical social family history and also the plan of care and agree with the plan of care. Patient was seen on April 25-day of her discharge she was without complaints or problems she is ready to go home her vertigo completely resolved she was not short of breath she understands that she needs to be on anticoagulation for about 6 months and will call in for a follow-up appoint with your family doctor after the holidays Her lungs were clear heart was regular vital signs were stable Any exceptions will be noted below Coding Level of Care Code 27975 OBS Care - Discharge Diagnoses Pulmonary embolism I26.99 Acute cor pulmonale presence: unspecified Chronicity: acute Pulmonary embolism type: unspecified Vertigo R42 Nausea & vomiting R11.2 Vomiting Intractability: non-intractable Vomiting type: unspecified Dyslipidemia E78.5 Depression F32.9 Anxiety F41.9 Hypothyroidism E03.9
[2020-04-24] MEDS ORDERED: LORazepam 1 MG TAB PO STA (11:39)
[2020-04-24] MEDS: PANTOprazole 40 MG TAB PO SCH (12:09)
--- NOTE | 2020-04-24 12:44 | Neurology Consultation ---
Date of Consultation April 24, 2020 Assessment & Plan (1) Vertigo: (2) Cerebral AVM: Vertigo with associated nausea and vomiting beginning 1 week ago. Benign positional paroxysmal vertigo possible although I am unable to induce any vertigo or nystagmus in this patient this morning. A posterior circulation stroke is possible although lack of typical associated signs and symptoms make this diagnosis less likely. Nonetheless, she has been diagnosed with an acute pulmonary embolism and may have had a more widespread thromboembolic event affecting the cerebral circulation as well. I have recommended an MRI of the brain to more fully evaluate or at least exclude this possibility. Patient will need some premedication with a benzodiazepine given her significant anxiety/claustrophobia. Discussed with hospitalist. Looks like she will require anticoagulation in light of her recent diagnosis of pulmonary embolism. PT/OT consultations. May benefit from additional treatment for vertigo. The observed cerebral AVM within the left basal ganglia is not likely clinically significant and at least not responsible for her current presentation. There is no evidence of recent [facility] hemorrhage. A nonurgent outpatient neurosurgical assessment of this issue can be considered. Would recommend an echocardiogram with bubble study as well to exclude PFO. History of Present Illness Reason for Consultation: Vertigo Requesting Physician: Mariella Vásquez Attending Physician: Jaciel Stewart MD History of Present Illness The patient is a 79-year-old female who complains of dizziness that began about 1 week ago. She describes an uncomfortable spinning sensation with associated nausea and vomiting that had been occurring at that time. She also complains of chronic tinnitus. No ear pain or hearing loss. She was seen in the emergency department on April 18 for this issue and treated conservatively. However, her symptoms persisted and she presented again yesterday complaining of dizziness and vertigo. She has had a CT of the head and CT angiography of the head and neck completed. 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 The CT angiography of the head and neck were otherwise unremarkable although there was evidence of pulmonary emboli seen within the branches of the right upper lobe. This finding was confirmed on a follow-up CTA of the chest. This morning, the patient reports that her vertigo and nausea have resolved. She has been started on Lovenox with intention to start an oral anticoagulant. In addition to vertigo, the patient does report feeling cognitively out of it with perhaps some difficulty with word finding and memory. History also notable for anxiety and she is fairly certain that she will not tolerate brain MRI. Allergies Allergy/AdvReac Type Severity Reaction Status Date / Time levofloxacin Allergy Intermediate QUINOLONES-JOINT Verified 04/23/20 13:16 PAIN EDEMA lumiracoxib Allergy Intermediate TRILISATE-TINNITUS,CONFUSION,RAPID Verified 04/23/20 13:16 HEART RATE zolpidem Allergy Intermediate MUSCLE PAIN Verified 04/23/20 13:16 choline salicylate Allergy Mild tinnitus/co Verified 04/23/20 13:16 nfusion/tac hycardia ciprofloxacin Allergy Mild RASH Verified 04/23/20 13:16 clindamycin Allergy Mild RASH Verified 04/23/20 13:16 homatropine Allergy Mild RASH Verified 04/23/20 13:16 magnesium salicylate Allergy Mild tinnitus/co Verified 04/23/20 13:16 nfusion/tac hycardia Penicillins Allergy Mild RASH Verified 04/23/20 13:16 phenobarbital Allergy Mild RASH Verified 04/23/20 13:16 Quinolones Allergy Mild LEVAQUIN-JOINT Verified 04/23/20 13:16 PAIN,EDEMA terfenadine Allergy Mild HEADACHES Verified 04/23/20 13:16 Trilisate Allergy Mild tinnitus/co Verified 12/26/15 10:23 nfusion/tac hycardia atropine Allergy Unknown UNKNOWN Verified 04/23/20 13:16 hyoscyamine Allergy Unknown UNKNOWN Verified 04/23/20 13:16 metronidazole Allergy Unknown UNKNOWN Verified 04/23/20 13:16 nabumetone Allergy Unknown UNKNOWN Verified 04/23/20 13:16 pantoprazole Allergy Unknown UNKNOWN Verified 04/23/20 13:16 scopolamine Allergy Unknown UNKNOWN Verified 04/23/20 13:16 tetracycline Allergy Unknown UNKNOWN Verified 04/23/20 13:16 astemizole AdvReac Intermediate HISMANAL-HE Verified 04/23/20 13:16 ADACHES capsaicin AdvReac Mild HEADACHE Verified 04/23/20 13:16 Cephalosporins AdvReac Mild CEFTIN-GI Verified 04/23/20 13:16 upset diclofenac AdvReac Mild HEADACHE Verified 04/23/20 13:16 Diclopak AdvReac Mild HEADACHE Verified 12/26/15 14:50 etodolac AdvReac Mild LODINE-HEAD Verified 04/23/20 13:16 ACHE fentanyl AdvReac Mild DIZZINESS Verified 04/23/20 13:16 oxaprozin AdvReac Mild DAYPRO-NAUSEA Verified 04/23/20 13:16 AND VOMITING oxycodone AdvReac Mild HALLUCINATI Verified 04/23/20 13:16 ONS,DISORIE NTATION pseudoephedrine AdvReac Mild GUAIMAX Verified 04/23/20 13:16 D-GI UPSET INSOMNIA DISORIENTATION RAPID HEART RATE Dehydrocholic Acid Allergy Mild UNKNOWN Uncoded 04/23/20 13:16 Home Medications Medication Instructions Recorded Confirmed Type Move Free Joint Health 1 tab PO HS 05/02/18 04/23/20 History melatonin 10 mg PO HS PRN 05/02/18 04/23/20 History cholecalciferol (vitamin D3) 2,000 unit PO HS 07/13/18 04/23/20 History [Vitamin D3] aspirin 81 mg PO QAM 08/02/18 04/23/20 History Centrum 1 tab PO HS 01/18/19 04/23/20 History loratadine 10 mg tablet 10 mg PO DAILY #30 tab 02/27/19 04/23/20 Rx cyanocobalamin (vitamin B-12) 5,000 mcg PO WEEKLY cap 04/12/19 04/23/20 History 5,000 mcg capsule buspirone 10 mg tablet 10 mg PO TID #270 tab 01/25/20 04/23/20 Rx levothyroxine 75 mcg tablet 75 mcg PO DAILY #90 tab 02/18/20 04/23/20 Rx sertraline 50 mg tablet 50 mg PO DAILY #90 tab 02/18/20 04/23/20 Rx Rolaids 2 tab PO DIRECTED PRN 04/17/20 04/23/20 History meclizine 25 mg tablet 25 mg PO TID PRN #30 tab 04/18/20 04/23/20 Rx ondansetron HCl 4 mg tablet 4 mg PO Q8H PRN #30 tab 04/18/20 04/23/20 Rx azithromycin 250 mg PO QAM #4 tab 04/24/20 Rx omeprazole 40 mg PO DAILY #30 cap 04/24/20 Rx rivaroxaban [Xarelto] 15 mg PO BID #42 tab 04/24/20 Rx Patient History Medical History Anxiety Artificial menopause state Depression Fibroma of lip GERD (gastroesophageal reflux disease) Hypothyroidism Insomnia Osteoarthritis Papilloma of oral cavity Urinary leakage Surgical History History of adenoidectomy History of bilateral tubal ligation History of cataract surgery RT/LEFT History of cholecystectomy History of colonoscopy History of esophagogastroduodenoscopy (EGD) History of tonsillectomy History of tooth extraction History of total abdominal hysterectomy and bilateral salpingo-oophorectomy History of total knee replacement RT Family History Sister Family history of diabetes mellitus Hypertension Allergies Other No family history of adverse response to anesthesia No family history of bleeding disorder Social History Smoking Status: Never smoker Second Hand Exposure: Yes (IN THE PAST); Hx Alcohol Use: No Hx Substance Use: No Preferred Language: Pashto Communication Ability: Effective Social And Political Studies Professor Required: No Beliefs That Will Affect Care: None marital status: Current Living Situation: Spouse current occupational status: retired Feels Safe at Home: Yes Assistive Devices: Glasses and Hearing Aid - Bilateral Review of Systems Constitutional: no fever and no chills Eyes: no blind spots and no diplopia Ear, Nose, Mouth, Throat: as per Subjective / HPI and + tinnitus; no ear pain and no hearing loss Respiratory: no cough and no dyspnea Cardiovascular: no chest pain and no palpitations Gastrointestinal: no nausea and no vomiting Genitourinary: no dysuria Musculoskeletal: no myalgia Integumentary: no rash and no lesions Neurologic: + gait abnormality, + dizziness and + confusion; no headache(s) Psychiatric: + anxiety Hematologic / Lymphatic: no easy bleeding and no easy bruising Exam (Neuro) Constitutional: well developed and well nourished; no acute distress Eyes: normal visual spence by confrontation, PERRL, normal accommodation and EOM intact bilaterally; no fundoscopic abnormality, no nystagmus and no papilledema Cardiovascular: Vessels: normal carotid upstroke; no carotid bruit Neurologic: Oriented to:: Person, Place and Time Memory: Short Term Intact and Remote Intact Attention: Span Intact and Concentration Intact Language: Naming Objects and Repeating Phrases Speech Fluency: negative Dysarthria Speech Aphasia: negative Aphasia Fund of Knowledge: Current Events, Past History and Vocabulary Cranial Nerves: Normal II (Visual spence full to confrontation, visual acuity normal), III, IV, (Pupils equal round reactive to light and accommodation, eye movements normal), V (Facial sensation intact), VII (There is no facial droop or weakness), VIII (Hearing intact), IX, X (Palate elevates to midline), XI (Shoulder shrug intact) and XII (Tongue protrudes to midline) Motor Strength: Normal Lower Extremities and Normal Upper Extremities; negative Pronator Drift Motor Tone: Normal Lower Extremities and Normal Upper Extremities Muscle Bulk/Involuntary Movements: No Involuntary Movements; negative Muscle Atrophy Sensation: Light Touch Intact, Pain/Temperature Intact, Vibration Intact and Proprioception Intact Coordination: Normal; negative Limited Balance, Dysdiadochokinesia, Finger-Nose Abnormal and Heel-Lawrence Abnormal Deep Tendon Reflexes: Rt Triceps: 2+, Lt Triceps: 2+, Rt Biceps: 2+, Lt Biceps: 2+, Rt Brachioradialis: 2+, Lt Brachioradialis: 2+, Rt Patellar: 2+, Lt Patellar: 2+, Rt Ankle: 1+ and Lt Ankle: 1+ Special Tests: negative Babinski Present Gait: Normal Station and Gait Results & Data ([facility]) Vital Signs (Past 12 Hours) Vital Signs Temp Pulse Pulse Resp BP Pulse Ox 04/24/20 11:45 37.0 C 66 18 110/70 95 04/24/20 07:48 36.5 C 54 L 16 115/64 96 04/24/20 07:04 58 L 04/24/20 03:08 36.6 C 98 H 17 104/64 94 Laboratory Results WBC 4.38, hemoglobin 13.7, hematocrit 41.0, platelet count 229, sodium 139, potassium 3.8, BUN 15, creatinine 1.17, glucose 94, calcium 8.9, AST 20, ALT 18, troponin less than 0.[address] of the head negative for hemorrhage or acute process. CTA of the head nega tive for thrombus, occlusion, aneurysm or dissection. Probable AVM within the left basal ganglia, also observed on studies done in 2014. Not likely clinically significant. These imaging findings were observed by the interpreting radiologist. I reviewed the images and agree. CTA of the chest does reveal segmental pulmonary embolus within the right upper lobe. Bilateral lower extremity venous Dopplers negative. Electrocardiogram reveals sinus bradycardia, 51 bpm. Coding Level of Care Code 11637 Initial Inpt Care Lvl 3 Diagnoses Vertigo R42 Cerebral AVM Q28.2
--- NOTE | 2020-04-24 13:51 | Magnetic Resonance Report ---
Brain MRI WITHOUT CONTRAST HISTORY: Vertigo Assess for CVA, eval AVM in basal ganglia TECHNIQUE: Multiplanar multisequence MRI of the brain was performed without the use of contrast. COMPARISON STUDY: Head CT 04/23/2020. FINDINGS: There are no areas of restricted diffusion to suggest acute infarction. The midline structu res are intact. The paranasal sinuses are clear. The mastoid air cells are clear. The ventricles and sulci are within normal limits for age. There is no mass, hematoma, midline shift. The major vascular flow-voids at the skull base are well maintained. Prominent vessel along the inferior aspect of the left basal ganglia extending into the left sylvian fissure. This favors a developmental venous anomal y rather than an arteriovenous malformation. This is better appreciated on the recent head CTA. IMPRESSION: 1. No acute infarct. 2. No intracranial hemorrhage. 3. Prominent vessel along the inferior aspect of the left basal ganglia extending into the left sylvi an fissure. This favors a developmental venous anomaly rather than an arteriovenous malformation. Thi s is better appreciated on the recent head CTA. ACT 112: Negative or not required by law. Electronically signed by: Abhinav Morfin M.D. 04/24/2020 1:49 PM
--- NOTE | 2020-04-24 17:13 | Hospitalist Progress Note ---
Date of Service April 24, 2020 Assessment & Plan (1) Pulmonary embolism: -Start on Lovenox 80 mg subcu q12h -transition to xarelto -CTA of chest shows segmental PE in RUL, no central PE -Venous dopplers legs bilaterally are negative for DVT CTA only shows PE no other concerns for malignancy- Pt reports having colonoscopy and mammography in the past few years and were negative for any abnormal findings. May consider a holter monitor as an outpatient. Will defer further workup to PCP as this seems unprovoked. (2) Vertigo: - CT head showing possible AVM from scans, wonder if pt had TIA a week ago, with word finding difficulty, nausea, vomiting, weakness and unsteady gait - these symptoms although primarily resolved, are present. gait is normal today, pt walked about to the bathroom without needs for assistance. Pt reports using a walker through her house in the past week due to imbalance. - Neuro consulted - AVM as seen on CTA of the head is old from back to 2013, unlikely cause of acute events, MRI IMPRESSION: 1. No acute infarct. 2. No intracranial hemorrhage. 3. Prominent vessel along the inferior aspect of the left basal ganglia extending into the left sylvian fissure. This favors a developmental venous anomaly rather than an arteriovenous malformation. This is better appreciated on the recent head CTA. - PT/OT consults - if needs home health then will ask CM to set up -consider vertigo (3) Nausea & vomiting: - Hx of such, improved currently - Cont zofran prn (4) Dyslipidemia: - Hx of such, not on statin therapy (5) Depression: - Cont sertraline (6) Anxiety: - Hs of such, will continue buspar 10 mg TID, sertraline 50 mg daily - discussed behavior modifications with the patient such as deep breathing, meditation, relaxation, reading a book to help focus on another thing, etc. to assist with level of anxiety. Pt was receptive to this. Consider outpatient counseling if the pt would be agreeable to it. (7) Hypothyroidism: - levothyroxine 75 mcg daily DVT- teds, scds, lovenox switched to xarelto. CODE: Full code Admission and Anticipated Discharge Date Admission Date: April 23, 2020 Subjective Patient is doing well she is concerned about going home due to her persistent vertigo. Neurology is seeing the patient and with the concern of the AVM the basal ganglia an MRI scan is ordered of her brain. She requests Ativan for the MRI which likely will also delay her discharge as she will be recovering post procedure with anxiolytic medicine on board Review of Systems Review of Systems: Mild distress and fatigue no headache, blurry or double vision Complains of vertiginous symptoms with head movement or moving her body no speech or swallowing issues no chest pain, pressure or palpitations Some baseline shortness of breath, cough or wheezes no abdominal pain, nausea or vomiting, diarrhea or constipation no dysuria, hematuria or frequency no focal joint pain or swelling no back pain, CVA tenderness or radicular pain no bruising, bleeding or rashes no focal signs of weakness or numbness or altered sensation no complaints of anxiety or depression.. Physical Exam Physical Exam: The patient appeared well nourished and normally developed. Vital signs as documented. Head exam is normocephalic atraumatic no scleral icterus Neck is without JVD, thyromegaly, or carotid bruits. Lungs are clear to auscultation, no focal loss of breath sounds Cardiac exam, Rhythm is regular.. No murmurs, rubs or gallops. Abdominal exam reveals normal bowel sounds, soft non tender, no masses Extremities are nonedematous and both pedal pulses are present Neurologic exam is alert and oriented, no focal loss of strength or sensation Skin is without bruises or rashes Psychologically is without concerns for anxiety or depression. Results & Data Results & Data ([facility]) Vital Signs (Past 12 Hours) Vital Signs Temp Pulse Pulse Resp BP Pulse Ox 04/24/20 15:44 98.2 F 76 18 101/64 96 04/24/20 15:08 91 H 04/24/20 11:45 98.6 F 66 18 110/70 95 04/24/20 07:48 97.7 F 54 L 16 115/64 96 04/24/20 07:04 58 L PG Care Time/CCT Total # of Minutes Spent Total Time Spent with Patient: Total time spent is greater than 50% in coordination of care (as documented) at patient's floor/unit and/or counseling patient: Coding Level of Care Code 75141 Subseq Hosp Care Lvl 2 Diagnoses Pulmonary embolism I26.99 Acute cor pulmonale presence: unspecified Chronicity: acute Pulmonary embolism type: unspecified Vertigo R42 Nausea & vomiting R11.2 Vomiting Intractability: non-intractable Vomiting type: unspecified Dyslipidemia E78.5 Depression F32.9 Anxiety F41.9 Hypothyroidism E03.9 (1) Pulmonary embolism Acute cor pulmonale presence: unspecified Chronicity: acute Pulmonary embol ism type: unspecified Qualified Code(s): I26.99 - Other pulmonary embolism without acute cor pulmonale (2) Nausea & vomiting Vomiting Intractability: non-intractable Vomiting type: unspecified Qualified Code(s): R11.2 - Nausea with vomiting, unspecified
--- NOTE | 2020-04-24 19:25 | XCELERA ---
[id number]
[2020-04-24] MEDS: CEROVITE ADV FORMULA TAB PO SCH (20:09)
[2020-04-24] MEDS: CHOLECALCIFEROL 1,000 UNITS 25 MCG TAB PO SCH (20:09)
[2020-04-24] MEDS: GLUCOSAMINE SULFATE 500 MG CAP PO SCH (20:09)
[2020-04-24] MEDS: RIVAROXABAN 15 MG TAB PO SCH (20:10)
[2020-04-25] MEDS: LEVOTHYROXINE SODIUM 75 MCG TABLET PO SCH (06:24)
[2020-04-25 06:39] LABS: Hematocrit (blood only) 40.2 % (37-47); Hemoglobin 13.5 g/dL (12.0-16.0); Mean Corpuscular Hemoglobin 29.5 pg (25-34); Mean Corpuscular Hgb Conc 33.6 g/dL (32-36); Mean Platelet Volume 10.3 fL (7.4-10.4); Platelet Count 244 K/uL (130-400); RDW Coefficient of Variation 13.7 % (11.5-14.5); RDW Standard Deviation 44.3 fL (36.4-46.3); Red Blood Count 4.57 M/uL (4.2-5.4); White Blood Count 5.07 K/uL (4.8-10.8)
[2020-04-25 07:17] LABS: BUN Creatinine Ratio 14.5 (10-20); Calcium 8.7 mg/dl (8.5-10.1); Creatinine Clr Calc Pharmacy 45.5 ml/min; Est GFR (African American) 62.2; Est GFR (Non-African American) 53.7
[2020-04-25 07:19] LABS: Albumin Globulin Ratio 0.9 (0.9-2); Bilirubin,Total 0.5 mg/dl (0.2-1); Globulin 3.2 gm/dl (2.5-4.0); Total Protein 6.2 gm/dl (6.4-8.2)
[2020-04-25] MEDS: PANTOprazole 40 MG TAB PO SCH (08:00)
[2020-04-25] MEDS: SERTRALINE HCL 50 MG TABLET PO SCH (08:00)
[2020-04-25] MEDS: LORATADINE 10 MG TAB PO SCH (08:01)
[2020-04-25] MEDS: ASPIRIN 81 MG ECTAB PO SCH (08:01)
[2020-04-25] MEDS: busPIRone 5 MG TAB PO SCH ×2 (08:01→13:32)
[2020-04-25] MEDS: RIVAROXABAN 15 MG TAB PO SCH (08:02)
[2020-04-25] MEDS ORDERED: AZITHROMYCIN 250 MG TAB PO SCH (09:00)
[2020-04-27] MEDS ORDERED: CYANOCOBALAMIN (VITAMIN B-12) 2,500 MCG TAB.SUBL SL SCH (09:00)
== END 2020-04-25 13:53 | disposition home health service (06) ==
LOC: 2N 09:51 → ED 09:51 → 2N 16:25